=== PATIENT | male | born 1940 | race Caucasian/White ===

== ENCOUNTER → 2017-04-17 | Outpatient (CLI) | payer MEDICARE, BC ==
[2017-04-17 11:43] LABS: Basophils # (A) 0.1 k/uL (0-0.2); Basophils % (A) 1 %; CH 32.5; Eosinophils % (A) 11 %; HCT 38.7 % (39.0-53.0); HDW 2.78; HGB 12.3 gm/dL (13.0-17.5); Luc # (Auto) 0.19; Luc % (Auto) 2; Lymphocytes # (A) 1.5 k/uL (1.0-4.8); Lymphocytes % (A) 16 %; MCH 32.4 pg (25.0-35.0); MCHC 31.7 g/dL (31.0-37.0); MCV 102.3 fL (80.0-100.0); Macrocytosis Slight; Mean Platelet Volume 8.6; Monocytes # (A) 0.8 k/uL (0-1.0); Monocytes % (A) 8 %; Neutrophils # (A) 6.1 k/uL (1.3-7.7); Neutrophils % (A) 63 %; RBC 3.79 m/uL (4.30-5.90); RDW 15.6 % (11.5-15.5); WBC 9.6 k/uL (3.8-10.6); WBC (Perox) 9.81
[2017-04-17 11:52] LABS: Anion Gap 11 mmol/L; Blood Urea Nitrogen 29 mg/dL (9-20); Calcium 9.3 mg/dL (8.4-10.2); Carbon Dioxide 21 mmol/L (22-30); Chloride 111 mmol/L (98-107); Glucose 99 mg/dL (74-99); Magnesium 1.6 mg/dL (1.6-2.3); Non-African American GFR(MDRD) 54 (>60 ml/min/1.73 sqM); Potassium 4.7 mmol/L (3.5-5.1); Sodium 143 mmol/L (137-145)
== END | disposition home or self-care (01) ==
LOC: LABWHC1 11:18
PROVIDERS: ATTEND Radiology Radiation Oncology
DX: C34.12 Malignant neoplasm of upper lobe, left bronchus or lung (principal)
CPT/HCPCS: 36415; 80048; 83735; 85025

== ENCOUNTER → 2017-07-30 | Outpatient (CLI) | payer MEDICARE, BC ==
--- NOTE | 2017-07-30 15:01 | CT ---
EXAMINATION TYPE: CT ChestAbdPelvis w con DATE OF EXAM: 07/30/2017 COMPARISON: PET CT 04/21/2017 HISTORY: 76-year-old male observation for metastases, follow-up Lung cancer TECHNIQUE: Contiguous axial scanning of the chest, abdomen, and pelvis performed with IV Contrast, pa tient injected with 80 mL of Visipaque 320. Delayed images through the kidneys were obtained. Coronal /sagittal reconstructions performed. CT DLP: 1589.5 mGycm Automated exposure control for dose reduction was used. FINDINGS: Chest: Left-sided pacemaker generator with right atrial, right ventricular, and coronary sinus leads. Heart upper limits of normal in size without pericardial effusion. Coronary artery calcifications are present in remarkable for coronary disease. Borderline ectasia ascending aorta 3.7 cm. Conventional arch vessel branching anatomy. Borderline to mildly enlarged caliber to the main right and left pulmonary arteries at 2.6 cm each hobbs ggesting underlying pulmonary arterial hypertension. A borderline sized 1 cm precarinal lymph node is unchanged. Otherwise, no thoracic lymphadenopathy. There is emphysema and diffuse interstitial fibrotic changes with no consolidation or pleural effusio n. There is left perihilar and left paravertebral soft tissue thickening and a 5.6 x 2.5 cm associated p neumatocele along the posterior perihilar region at the site of patient's previous cavitary neoplasm. There is some nodular soft tissue measuring 1.3 cm along the medial margin of the pneumatocele that c ould represent abnormal, recurrent soft tissue. Small cavitary lesion anterior right midlung measures 1.4 cm versus 2.6 cm on 04/21/2017. Some patchy subpleural density posterior left lower lobe axial image 28 through 32 appears new. This can be reassessed at follow-up. ABDOMEN: No focal liver lesion or biliary ductal dilatation. Portal venous system is patent. Cholecystectomy clips. Adrenal glands, kidneys, spleen, and pancreas appear within normal limits. No dilated small bowel, free fluid, or free air. No mesenteric or retroperitoneal lymphadenopathy. Normal appendix. Mild circumferential wall thickening at the hepatic flexure likely due to nondistention. There is lef t hemicolectomy diverticulosis, greatest in the sigmoid colon. No pericolonic inflammatory change. Pelvis: Bladder urine distended. Prostate gland measures 4.6 cm wide. Small left-sided scrotal hydrocele. No abnormal fluid collection otherwise seen in the pelvis and no pelvic lymphadenopathy. Bones: Degenerative changes at the hips and SI joints and throughout the spine. There are bilateral L5 pars defects with. 2 anterolisthesis at L5-S1. Grade 1 retrolistheses at L1-L2 and L2-L3. No osseous destr uctive process. Normal variant of sternal foramina. IMPRESSION: 1. POSTERIOR LEFT PERIHILAR PNEUMATOCELE AND ASSOCIATED LEFT PERIHILAR SOFT TISSUE THICKENING AT THE SITE OF PATIENT'S TREATED NEOPLASM. HOWEVER, THERE IS A 1.3 CM SOFT TISSUE NODULE ALONG THE WALL O F THE PNEUMATOCELE, SHORT INTERVAL FOLLOW-UP RECOMMENDED TO EXCLUDE LOCAL RECURRENCE. 2. SIMILARLY, THE PATIENT'S CAVITARY NODULE ANTERIOR RIGHT MIDLUNG IS SMALLER AT 1.4 CM VERSUS 2.6 CM , PREVIOUSLY. FINDINGS SUGGEST TREATMENT EFFECT. STABILITY OR EVOLVING CHANGES SHOULD BE ASSESSED ON FOLLOW-UP EXAM. 3. COPD AND SUSPECTED UNDERLYING PULMONARY ARTERIAL HYPERTENSION. 4. MILD CIRCUMFERENTIAL WALL THICKENING AT THE HEPATIC FLEXURE LIKELY DUE TO NONDISTENTION. CORRELATE FOR ANY SYMPTOMS OF COLITIS. 5. LEFT-SIDED COLONIC DIVERTICULOSIS ESPECIALLY IN THE SIGMOID COLON. 6. ADVANCED DEGENERATIVE CHANGES LUMBAR SPINE ABOVE.
== END | disposition home or self-care (01) ==
LOC: RADCTMAIN 11:56
PROVIDERS: ATTEND Internal Medicine Hematology & Oncology
DX: C34.32 Malignant neoplasm of lower lobe, left bronchus or lung (principal); M79.89 Other specified soft tissue disorders; R91.8 Other nonspecific abnormal finding of lung field; J44.9 Chronic obstructive pulmonary disease, unspecified; J98.4 Other disorders of lung; K57.30 Diverticulosis of large intestine without perforation or abscess without bleeding; Z88.0 Allergy status to penicillin
CPT/HCPCS: 82565; 84520; 71260; 74177; 36415; Q9967

== ENCOUNTER → 2017-09-28 | Outpatient (CLI) | payer MEDICARE, BC ==
[~2017-09-28] MED LIST: SODIUM CHLORIDE 0.9% 250 ML IV ONE
[2017-09-28 15:01] VITALS: BP 168/72; PULSE 94; RESP 18
--- NOTE | 2017-09-28 16:35 | CT ---
EXAMINATION TYPE: CT ChestAbdPelvis w con DATE OF EXAM: 09/28/2017 COMPARISON: 07/30/2017 chest and in pelvis and PET/CT dated 07/07 HISTORY: Follow up lung cancer CT DLP: 1565.7 mGycm. Automated Exposure Control for Dose Reduction was Utilized. CONTRAST: CT scan of the thorax, abdomen and pelvis is performed with IV Contrast, patient injected with 80mL o f Isovue 300. FINDINGS: LUNGS: The known cavitary lesion/pneumatocele with focal medial soft tissue nodule measures up to 5.0 x 2.2 cm with a nodule measuring 0.9 cm, both decrease in size from the prior where these measured 5 .6 x 2.5 cm and 1.3 cm. Although this appears to have decreased in size the eccentric nodule still re jo concerning for recurrence. There is also decreased size and conspicuity of the right middle lobe cavitary spiculated lesion in c omparison to the prior now measuring proximally 0.7 x 0.7 cm and previously measuring 1.4 cm. Prior t o this on the exam of 04/21/2017 this measured 2.6 cm. Mild centrilobular emphysema and interstitial fibrotic changes within the lingula and left lower lobe are unchanged from the prior. Interstitial fibrotic changes in a subpleural location are less pronou nced along the periphery of the right lung. There is near resolution of the previously seen patchy ri ght medial subpleural density favored to have represented atelectasis. Focal thickening is seen poste riorly on the left lower lobe measuring 6 mm in thickness on series 4 image 37. MEDIASTINUM: There are no greater than 1 cm hilar or mediastinal lymph nodes. There is an unchanged 1 .0 cm short axis pretracheal lymph node moderate coronary artery calcifications are seen. No perica rdial effusion is seen. Left-sided cardiac device is present. LIVER/GB: Liver enhances homogeneously without discrete lesion. Gallbladder surgically absent. PANCREAS: Parenchymal calcifications are seen within the pancreas from chronic pancreatitis. No perip ancreatic fluid collection or peripancreatic fat stranding is seen to suggest acute pancreatitis. SPLEEN: No significant abnormality is seen. No splenomegaly. ADRENALS: No thickening or nodularity. KIDNEYS: No significant abnormality is seen. BOWEL: Appendix is air-filled and within normal limits. Scattered colonic diverticula are seen withou t pericolonic fat stranding. Moderate amount retained stool is seen throughout the colon most pronoun jose cruz within the cecum. GENITAL ORGANS: Prostate gland is diffusely heterogenous containing central zone calcifications. LYMPH NODES: No greater than 1cm abdominal or pelvic lymph nodes are appreciated. OSSEOUS STRUCTURES: There is redemonstration of grade 2 anterolisthesis of L5 on S1 and grade 1 retro listhesis at L1 L2/L2 L3. Degenerative changes of the femoral acetabular joints, sacroiliac joints, a nd spine are again seen. No new suspicious osseous lesion. IMPRESSION: 1. Continued decrease in size of the left-sided pneumatocele with focal nodule at the site of the pat ient's prior treated neoplasm. There is also continued decrease in size of the second left-sided cavi tary nodule and right middle lobe pulmonary nodule also indicating response to treatment. However th e mural nodule within the pneumatocele in the largest lesion still remains suspicious and close surve illance is recommended. 2. No new adenopathy within the chest, abdomen, or pelvis. No suspicious new osseous lesions or new e vidence of additional sites of visceral metastasis.
== END | disposition home or self-care (01) ==
LOC: RADCTMAIN 13:43
PROVIDERS: ATTEND Internal Medicine Hematology & Oncology
DX: C34.32 Malignant neoplasm of lower lobe, left bronchus or lung (principal); Z88.0 Allergy status to penicillin
CPT/HCPCS: 82565; 84520; 96360; 71260; 74177; Q9967

== ENCOUNTER 2017-10-17 19:55 | Inpatient (IN) | payer MEDICARE, BC ==
[2017-10-17] MEDS: SODIUM CHLORIDE 0.9% 1,000 ML IV STA (21:04)
--- NOTE | 2017-10-17 21:05 | ED ---
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 He apparently states he was sitting in his car he fell he had a cough he coughed up a large amount of blood. He has some shortness of breath associated with it. His saturation was initially 84% room air with 93 and 4 L. Upon arrival he felt improved. He denies any chest pain fevers chills nausea vomiting sweats or other symptoms. He states the blood was definitely from his lung from a nosebleed not from his GI tract. MD Complaint: shortness of breath, cough - Related Data Home Medications Medication Instructions Recorded Confirmed Allopurinol [Zyloprim] 300 mg PO DAILY 10/02/14 10/17/17 Aspirin EC [Ecotrin] 325 mg PO DAILY 10/02/14 10/17/17 Cholecalciferol [Vitamin D3] 2,000 unit PO HS 10/02/14 10/17/17 Glucosam/Cristian-Msm1/C/Dorian/Bosw 1 tab PO DAILY 10/02/14 10/17/17 [Glucosamine-Chondroitin Tablet] Magnesium Oxide [Mag-Ox] 400 mg PO QID 10/02/14 10/17/17 Metoprolol Succinate [Toprol XL] 100 mg PO QAM 10/02/14 10/17/17 Omeprazole [PriLOSEC] 20 mg PO AC-BID 10/02/14 10/17/17 Saxagliptin HCl [Onglyza] 5 mg PO DAILY 10/02/14 10/17/17 Simvastatin [Zocor] 20 mg PO HS 10/02/14 10/17/17 Vitamin B Complex 1 cap PO DAILY 10/02/14 10/17/17 hydrALAZINE HCL [Apresoline] 50 mg PO TID 10/02/14 10/17/17 Cetirizine HCl [Zyrtec] 10 mg PO DAILY 10/17/17 10/17/17 Ibuprofen [Motrin] 600 mg PO Q8HR PRN 10/17/17 10/17/17 Allergies Allergy/AdvReac Type Severity Reaction Status Date / Time Penicillins Allergy Anaphylaxis Verified 10/17/17 20:23 Review of Systems ROS Statement: Those systems with pertinent positive or pertinent negative responses have been documented in the HPI. ROS Other: All systems not noted in ROS Statement are negative. Past Medical History Past Medical History: CVA/TIA, Diabetes Mellitus, GERD/Reflux, Hyperlipidemia, Osteoarthritis (OA), Sleep Apnea/CPAP/BIPAP Additional Past Medical History / Comment(s): SEE DR RAMOS'S H&P, LIGHT STROKE 6-7 YRS AGO-NO RESIDUAL,USES C PAP,CONSTIPATION,HEMORRHOIDS,UTI'S Last Myocardial Infarction Date:: unknown History of Any Multi-Drug Resistant Organisms: None Reported Past Surgical History: AICD, Cholecystectomy, Heart Catheterization, Heart Catheterization With Stent, Hernia Repair, Orthopedic Surgery Additional Past Surgical History / Comment(s): UMBILICAL AND LT INGUINAL HERNIA REPAIRS,RT HIP ARTHROSCOPY, PACEMAKER/DEF ST SOPHIA LT CHEST Past Anesthesia/Blood Transfusion Reactions: No Reported Reaction Date of Last Stent Placement:: 09-23-2009 Type of Cardiac Device: AICD Device Placement Date:: 01-17-2010 Past Psychological History: Depression Smoking Status: Former smoker Past Alcohol Use History: Occasional Past Drug Use History: None Reported - Past Family History Mother Family Medical History: Cancer Brother(s) Family Medical History: Cancer Additional Family Medical History / Comment(s): X 4 BROTHERS General Exam - General Exam Comments Initial Comments: This is a well-developed well-nourished awake alert oriented times 3 male was dry blood noted on the patient's face and on his clothing including issues. Limitations: no limitations Respiratory exam: Present: decreased breath sounds (Course breath sounds are noted) Course Vital Signs 10/17/17 10/17/17 10/17/17 20:03 20:07 21:30 Temperature 98.3 F Pulse Rate 85 83 Respiratory 18 18 18 Rate Blood Pressure 104/61 142/70 O2 Sat by Pulse 93 L 94 L Oximetry 10/17/17 10/17/17 23:03 23:37 Temperature Pulse Rate 77 81 Respiratory 18 18 Rate Blood Pressure 140/76 169/78 O2 Sat by Pulse 96 97 Oximetry Medical Decision Making - Medical Decision Making I did discuss [employer] the patient family as well as with Dr. Kim patient will be admitted to the hospitalist Dr. Mcclure with Dr. Kim and consult. - Lab Data Result diagrams: 10/17/17 20:00 10/17/17 20:00 Lab Results 10/17/17 10/17/17 10/17/17 Range/Units 20:00 20:00 20:00 WBC 9.1 (3.8-10.6) k/uL RBC 2.57 L (4.30-5.90) m/uL Hgb 8.6 L (13.0-17.5) gm/dL Hct 27.6 L (39.0-53.0) % MCV 107.4 H (80.0-100.0) fL MCH 33.5 (25.0-35.0) pg MCHC 31.2 (31.0-37.0) g/dL RDW 19.6 H (11.5-15.5) % Plt Count 116 L (150-450) k/uL Neutrophils % 88 % Lymphocytes % 5 % Monocytes % 6 % Eosinophils % 0 % Basophils % 0 % Neutrophils # 8.0 H (1.3-7.7) k/uL Lymphocytes # 0.5 L (1.0-4.8) k/uL Monocytes # 0.6 (0-1.0) k/uL Eosinophils # 0.0 (0-0.7) k/uL Basophils # 0.0 (0-0.2) k/uL Manual Slide Review Performed Polychromasia Present Hypochromasia Slight Poikilocytosis (manual Present Anisocytosis Slight Macrocytosis Marked PT (9.0-12.0) sec INR (<1.2) APTT (22.0-30.0) sec Sodium (137-145) mmol/L Potassium (3.5-5.1) mmol/L Chloride (98-107) mmol/L Carbon Dioxide (22-30) mmol/L Anion Gap mmol/L BUN (9-20) mg/dL Creatinine (0.66-1.25) mg/dL Est GFR (CKD-EPI)AfAm (>60 ml/min/1.73 sqM) Est GFR (CKD-EPI)NonAf (>60 ml/min/1.73 sqM) Glucose (74-99) mg/dL Calcium (8.4-10.2) mg/dL Magnesium (1.6-2.3) mg/dL Total Bilirubin (0.2-1.3) mg/dL AST (17-59) U/L ALT (21-72) U/L Alkaline Phosphatase (38-126) U/L Total Creatine Kinase 28 L (55-170) U/L CK-MB (CK-2) 0.9 (0.0-2.4) ng/mL CK-MB (CK-2) Rel Index 3.2 Troponin I 0.031 (0.000-0.034) ng/mL NT-Pro-B Natriuret Pep pg/mL Total Protein (6.3-8.2) g/dL Albumin (3.5-5.0) g/dL Blood Type O Positive Blood Type Recheck No Antibody Screen NEGATIVE Spec Expiration Date 10/20/2017 - 229910/17/17 10/17/17 10/17/17 Range/Units 20:00 20:00 20:00 WBC (3.8-10.6) k/uL RBC (4.30-5.90) m/uL Hgb (13.0-17.5) gm/dL Hct (39.0-53.0) % MCV (80.0-100.0) fL MCH (25.0-35.0) pg MCHC (31.0-37.0) g/dL RDW (11.5-15.5) % Plt Count (150-450) k/uL Neutrophils % % Lymphocytes % % Monocytes % % Eosinophils % % Basophils % % Neutrophils # (1.3-7.7) k/uL Lymphocytes # (1.0-4.8) k/uL Monocytes # (0-1.0) k/uL Eosinophils # (0-0.7) k/uL Basophils # (0-0.2) k/uL Manual Slide Review Polychromasia Hypochromasia Poikilocytosis (manual Anisocytosis Macrocytosis PT 9.8 (9.0-12.0) sec INR 1.0 (<1.2) APTT 22.2 (22.0-30.0) sec Sodium 145 (137-145) mmol/L Potassium 5.0 (3.5-5.1) mmol/L Chloride 109 H (98-107) mmol/L Carbon Dioxide 25 (22-30) mmol/L Anion Gap 11 mmol/L BUN 39 H (9-20) mg/dL Creatinine 1.19 (0.66-1.25) mg/dL Est GFR (CKD-EPI)AfAm 68 (>60 ml/min/1.73 sqM) Est GFR (CKD-EPI)NonAf 59 (>60 ml/min/1.73 sqM) Glucose 101 H (74-99) mg/dL Calcium 8.7 (8.4-10.2) mg/dL Magnesium 1.3 L (1.6-2.3) mg/dL Total Bilirubin 0.2 (0.2-1.3) mg/dL AST 18 (17-59) U/L ALT 31 (21-72) U/L Alkaline Phosphatase 62 (38-126) U/L Total Creatine Kinase (55-170) U/L CK-MB (CK-2) (0.0-2.4) ng/mL CK-MB (CK-2) Rel Index Troponin I (0.000-0.034) ng/mL NT-Pro-B Natriuret Pep 1680 pg/mL Total Protein 6.0 L (6.3-8.2) g/dL Albumin 3.2 L (3.5-5.0) g/dL Blood Type Blood Type Recheck Antibody Screen Spec Expiration Date - EKG Data -: EKG Interpreted by Me EKG shows normal: sinus rhythm (Atrial sensed ventricular paced rhythm of 77PA interval 136 QRS duration 138 QT since QTC of 46/459) - Radiology Data Radiology results: report reviewed (I did review the imaging and report evidence a left upper lobe mass consistent with the patient's known lung cancer. ), image reviewed Disposition Clinical Impression: Hemoptysis, Small cell lung cancer, Anemia, Hypomagnesemia Disposition: ADMITTED IP TO THIS [facility] Condition: Stable Referrals: Stanford Hernandez DO [Primary Care Provider] - 1-2 days
[2017-10-17 21:20] LABS: Anisocytosis Slight; Basophils % (A) 0 %; Eosinophils % (A) 0 %; HCT 27.6 % (39.0-53.0); HGB 8.6 gm/dL (13.0-17.5); Hypochromasia Slight; Lymphocytes # (A) 0.5 k/uL (1.0-4.8); Lymphocytes % (A) 5 %; MCH 33.5 pg (25.0-35.0); MCHC 31.2 g/dL (31.0-37.0); MCV 107.4 fL (80.0-100.0); Macrocytosis Marked; Mean Platelet Volume 8.1; Monocytes # (A) 0.6 k/uL (0-1.0); Monocytes % (A) 6 %; Neutrophils % (A) 88 %; Platelet Count 116 k/uL (150-450); RBC 2.57 m/uL (4.30-5.90); RDW 19.6 % (11.5-15.5); WBC 9.1 k/uL (3.8-10.6)
--- NOTE | 2017-10-17 21:30 | XR ---
EXAMINATION TYPE: XR chest 2V DATE OF EXAM: 10/17/2017 COMPARISON: 01/18/2010 chest x-ray, 09/28/2017 CT chest abdomen pelvis INDICATION: Difficulty breathing coughing up blood history of lung cancer TECHNIQUE: Frontal and lateral views of the chest are obtained. FINDINGS: The heart size is enlarged. The pulmonary vasculature is normal. There is a density adjacent to the aortic arch which is an interval finding. There appears to be elev ation left diaphragm. Pacemaker overlies left chest.. IMPRESSION: 1. Density over the left upper lung field. This appears related to the patient's reported cancer.
[2017-10-17 21:31] LABS: Albumin 3.2 g/dL (3.5-5.0); Calcium 8.7 mg/dL (8.4-10.2); Magnesium 1.3 mg/dL (1.6-2.3); Total Bilirubin 0.2 mg/dL (0.2-1.3)
[2017-10-17 21:39] LABS: Poikilocytosis (M) Present; Polychromasia Present
[2017-10-17 21:40] LABS: Partial Thromboplastin Time 22.2 sec (22.0-30.0); Prothrombin Time 9.8 sec (9.0-12.0)
[2017-10-17 21:57] LABS: Creatine Kinase MB 0.9 ng/mL (0.0-2.4); Troponin I 0.031 ng/mL (0.000-0.034)
[2017-10-18] MEDS ORDERED: IPRATROPIUM-ALBUTEROL 3 ML NEB INHALATION PRN (06:34)
[2017-10-18 06:46] LABS: Anisocytosis Slight; Basophils % (A) 0 %; Eosinophils % (A) 0 %; HCT 27.4 % (39.0-53.0); HGB 8.6 gm/dL (13.0-17.5); Hypochromasia Moderate; Lymphocytes # (A) 0.4 k/uL (1.0-4.8); Lymphocytes % (A) 5 %; MCH 34.6 pg (25.0-35.0); MCHC 31.5 g/dL (31.0-37.0); MCV 109.9 fL (80.0-100.0); Macrocytosis Marked; Mean Platelet Volume 8.5; Monocytes # (A) 0.4 k/uL (0-1.0); Monocytes % (A) 5 %; Neutrophils # (A) 7.1 k/uL (1.3-7.7); Neutrophils % (A) 89 %; Platelet Count 99 k/uL (150-450); RBC 2.49 m/uL (4.30-5.90); RDW 19.8 % (11.5-15.5)
[2017-10-18] MEDS: IPRATROPIUM-ALBUTEROL 3 ML NEB IH SCH ×4 (08:41→19:16)
[2017-10-18] MEDS: SODIUM CHLORIDE 0.9% 1,000 ML IV STA (09:07)
[2017-10-18] MEDS ORDERED: LINAGLIPTIN 5 MG TABLET PO SCH (10:45)
[2017-10-18 10:58] LABS: Glucose,Whole Blood 119 mg/dL (75-99)
[2017-10-18 11:16] LABS: Anisocytosis Moderate; Basophils % (A) 0 %; Eosinophils # (A) 0.1 k/uL (0-0.7); Eosinophils % (A) 1 %; HCT 26.8 % (39.0-53.0); HGB 8.5 gm/dL (13.0-17.5); Hypochromasia Moderate; Lymphocytes # (A) 0.3 k/uL (1.0-4.8); Lymphocytes % (A) 3 %; MCH 34.6 pg (25.0-35.0); MCHC 31.7 g/dL (31.0-37.0); MCV 109.2 fL (80.0-100.0); Macrocytosis Marked; Mean Platelet Volume 7.7; Monocytes # (A) 0.5 k/uL (0-1.0); Monocytes % (A) 5 %; Neutrophils # (A) 8.4 k/uL (1.3-7.7); Neutrophils % (A) 90 %; Platelet Count 114 k/uL (150-450); RBC 2.45 m/uL (4.30-5.90); WBC 9.3 k/uL (3.8-10.6)
[2017-10-18] MEDS: ALLOPURINOL 300 MG TAB PO SCH (11:41)
[2017-10-18] MEDS: LORATADINE 10 MG TAB PO SCH (11:42)
[2017-10-18] MEDS: PANTOPRAZOLE 40 MG TABLET PO SCH ×2 (11:42→16:02)
[2017-10-18] MEDS ORDERED: ONDANSETRON 4 MG/2 ML VIAL IVP PRN (14:46)
[2017-10-18] MEDS ORDERED: ACETAMINOPHEN TAB 325 MG TAB PO PRN (14:46)
[2017-10-18] MEDS ORDERED: MAGNESIUM HYDROXIDE 2,400 MG/10 ML CUP PO PRN (14:46)
[2017-10-18] MEDS ORDERED: NALOXONE 0.4 MG/ML 1 ML VIAL IV PRN (14:46)
[2017-10-18] MEDS ORDERED: MELATONIN 3 MG TABLET PO PRN (14:46)
[2017-10-18] MEDS ORDERED: CALCIUM CARBONATE 500 MG CHEWABLE PO PRN (14:46)
[2017-10-18] MEDS ORDERED: LACTULOSE 20 GM/30 ML CUP PO PRN (14:46)
[2017-10-18] MEDS ORDERED: ALPRAZolam 0.25 MG TAB PO PRN (14:46)
[2017-10-18] MEDS ORDERED: RX INFO: IV CONTRAST WAS GIVEN 1 EACH MISC MISCELLANE PRN (15:04)
--- NOTE | 2017-10-18 15:53 | HP ---
HISTORY AND PHYSICAL DATE OF ADMISSION: 10/18/17 DATE OF SERVICE: 10/18/17 PRESENT COMPLAINT: Coughing/vomiting blood. HISTORY OF PRESENTING COMPLAINT: This is a very pleasant 77-year-old patient who follows with oncologist Dr. Gay and Radiation Oncology, Dr. Magana. Also sees Dr. Kim from Pulmonary. Chronic stable medical conditions include diabetes, GERD, hyperlipidemia, obstructive sleep apnea uses CPAP and COPD and coronary artery disease with stent. The patient diagnosed to have small-cell lung cancer, finished a course of chemo and radiation treatment a few weeks ago. I do not have further details on the same from the patient. His daughter is present. The patient has had some cough and then he is not sure if he coughed up or vomited a large amount of blood. The patient did have 1 loose stool today that was dark in color. No abdominal pain. Presented for the same. Patient's appetite is fair though the patient has lost some weight. There is no fever, no chills. No sputum production. Does feel tired and run down. REVIEW OF SYSTEMS: Constitutional: Tired. HEENT none. Respiratory: Some cough and some shortness of breath. Cardiovascular none. Gastrointestinal heartburn. Genitourinary none. Musculoskeletal: None. Dermatological, hematologic, lymphatic none. Psychiatry none. Neurological none. PAST MEDICAL HISTORY: Stroke with no residual, diabetes mellitus type 2, GERD, hyperlipidemia, osteoarthritis, sleep apnea, constipation, hemorrhoids, April 06, 2013 was diagnosed with stage II lung cancer, given chemo and radiation. PAST SURGICAL HISTORY: AICD, cholecystectomy, cardiac cath with stent, hernia repair, umbilical and left inguinal hernia repair, right hip arthroplasty, pacemaker. PSYCH HISTORY: Depression. SOCIAL HISTORY: Patient smoked for about 49 years, stopped in 2003. Lives by himself. The patient was self-employed. Used to repair tractors. FAMILY HISTORY: Four brothers had cancers. HOME MEDICATIONS: 1. Magnesium oxide 400 mg t.i.d. 2. Zocor 20 mg q.h.s. 3. Motrin 600 mg q.8h p.r.n. 4. Vitamin D3 2000 units p.o. q.h.s. 5. Vitamin B complex 1 capsule p.o. daily. 6. Zyrtec 10 mg p.o. daily. 7. Hydralazine 50 mg p.o. t.i.d. 8. Glucosamine chondroitin 1 tab p.o. daily. 9. Aspirin 325 p.o. daily. 10.Allopurinol 300 mg p.o. daily. 11.Onglyza 5 mg p.o. daily. 12.Prilosec 20 mg p.o. b.i.d. 13.Toprol-XL 100 mg p.o. daily. ALLERGIES: PENICILLIN. PHYSICAL EXAMINATION: Vital signs on presentation, temperature 98.3, pulse 85, respiration 18, blood pressure 104/61, pulse ox 93% on 2 L. GENERAL APPEARANCE: Well built, BMI 32, lying in bed, not in distress. EYES: Pupils equal. Conjunctivae normal. HEENT: External appearance of nose and ears. Oral cavity normal. NECK: JVD not raised. Mass not palpable. RESPIRATORY: Effort normal. LUNGS: Diminished breath sounds. CARDIOVASCULAR: 1st and second sounds normal. No edema. ABDOMEN: Soft, nontender. Liver and spleen not palpable. LYMPHATICS: No lymph nodes palpable in the neck or axillae. PSYCHIATRY: Alert and oriented x3. Mood and affect normal. NEUROLOGICAL: Pupils equal. Cranial nerves grossly intact. Power and sensation grossly intact. INVESTIGATIONS: White count 9.1, hemoglobin 8.6, is 8.5, platelets 116, potassium 5, BUN 39, creatinine 1.19. Chest x-ray shows density in the left upper lung field. ASSESSMENT: 1. Massive hemoptysis, less likely appears to be hematemesis in a patient who has been coughing, has had small-cell lung cancer with radiation chemo. The patient's tumor could have a eroded blood vessel. Clinically does not appear to have any acute infection, less likely but possible this could have been hematemesis, but the patient has only had 1 dark stool. 2. Small-cell lung cancer, status post treated with chemo and radiation treatment. 3. Diabetes mellitus type 2 on oral hypoglycemic. 4. Gastroesophageal reflux disease. 5. Hyperlipidemia. 6. Obstructive sleep apnea uses CPAP machine. 7. Chronic obstructive pulmonary disease in an ex-smoker. 8. Coronary artery disease with prior history of stent. PLAN: H and H is closely being followed. The patient will be switched to a clear liquid diet. I discussed with Dr. Kim to whom the patient now will follow up. The patient will need a repeat CT scan and a bronchoscopy. There is a high probability of bleeding again. Since there is a concern this could be GI too, also consulted Dr. Ontiveros from Gastroenterology. Home medications are resumed. Accu-Cheks will be followed. Care was discussed with the patient. Daughter at the bedside. We will also make a consultation to Dr. Gay from Oncology. Copy to Dr. Hernandez. KACIE / ALISONN: [id number] /
[2017-10-18] MEDS: hydrALAZINE HCL 50 MG TAB PO SCH ×2 (16:01→21:19)
[2017-10-18] MEDS: MAGNESIUM OXIDE 400 MG TAB PO SCH ×2 (16:02→21:19)
[2017-10-18] MEDS: METOPROLOL SUCCINATE (ER) 100 MG TAB.ER.24H PO SCH (16:02)
--- NOTE | 2017-10-18 16:39 | CT ---
CT CHEST FOR PULMONARY EMBOLISM. EXAMINATION TYPE: CT angio chest DATE OF EXAM: 10/18/2017 INDICATION: Shortness of breath and hemoptysis. CT DLP: 579 mGycm, Automated exposure control for dose reduction was used. CONTRAST: Patient injected with 100 mL of Isovue 370. COMPARISON: 09/28/2017r TECHNIQUE: CT of the chest is performed on a spiral scan at 2 mm thick sections. Study is performed with intravenous contrast timed for evaluation for pulmonary embolism. This will limit additional po rtions of the evaluation. 3-D MIP images reconstructed by the technologist are reviewed on the compu ter in the coronal and sagittal planes. FINDINGS: No persistent filling defects are evident to suggest an acute pulmonary embolism. There is an enlarged lymph node in the pretracheal space measuring 1.6 cm. Additional enlarged lympha denopathy is in the aortopulmonic window measuring 1.1 cm. Left hilar adenopathy is more difficult to exclude. Lymph nodes have enlarged from the comparison. The ascending aorta diameter at the level o f the main pulmonary artery is 3.9 cm. The main pulmonary artery diameter at the bifurcation is 3.3 cm. Multiple densities in particular nodular thickening is present at the left lung base. Findings can be compatible with metastatic disease or pulmonary fibrosis. There is a lung mass in the medial left kyle ng adjacent to the aorta. This has cavitation. At the level of the aortic arch measures approximately 5.9 x 4.7 cm. The air cavity is changed appearance from the comparison currently measuring 3.4 x 4.3 cm, previous measurements obtained were 2.2 x [address] section through the upper abdomen are unremarkable. IMPRESSIONS: 1. No acute pulmonary embolism. 2. Cavitary lesion posterior medial mid left lung. Cavity size has changed appearance from comparison . 3. Lymphangitic metastasis favored over pulmonary fibrosis left lung base.
--- NOTE | 2017-10-18 16:40 | P.CNPUL ---
History of Present Illness Consult date: 10/18/17 Chief complaint: massive hemoptysis History of present illness: 77-year-old male patient with known history of small cell lung cancer who was treated with a concurrent chemoradiation therapy, presents emergency department yesterday because of an acute onset massive hemoptysis. The patient reports cough and approximately 2 50 mL of bright red blood with occasional blood clots. He was very much concerned and he presented himself to the burst department. He denies having any significant shortness of breath. No chest pain or pleurisy. No hematemesis. No melanotic stools. No epistaxis. No fever. No chills. His hemoglobin has stayed at 8.5 and stable. Correlation profile is also within normal limits. Note that the patient has history of COPD, coronary artery disease, congestion heart failure, he has an AICD in place in addition to diabetes and hyperlipidemia. Furthermore, the patient presented back in March 2017 with a cavitating mass in the left upper lobe and he was having episodes of hemoptysis. The CAT scan was done and [facility] and showed a 6 cm cavitating mass in the left upper lobe medially and posteriorly located. There was another 1.7 cm right paratracheal lymph node and others particularly the lesion in the right upper lobe. At that point, a bronchoscopy was done and we confirmed the diagnosis of a small cell lung cancer. The patient has received systemic chemoradiation therapy since then and the most recent CAT scan of the chest abdomen pelvis that was done on 09/28/2017 showed left-sided pneumatocele with focal nodular and this has significantly increased in size compared to the previous CAT scan findings. There was also decrease in the size of a nodule on the right indicating positive response. No evidence of any mediastinal lymphadenopathy. No evidence of any osseous metastases. No evidence of any visceral metastasis on the CAT scan of the abdomen and pelvis. Note that the bronchoscopy that was done on 04/24/2017 showed endobronchial tumor obstructing the left lower lobe bronchitis and there was evidence of extrinsic compression along with endobronchial involvement. There was significant compromise of the left lower lobe bronchus and there was reduction in size of the lower lumbar a 80-90%. Review of Systems Constitutional Constitutional: no fever, no night sweats, no significant weight gain, no significant weight loss, no exercise intolerance Eyes Eyes: no dry eyes, no vision change, no irritation ENMT Ears: no difficulty hearing, ear pain (left sided) Nose: no frequent nosebleeds, nose problems, sinus problems Mouth/Throat: no sore throat, no bleeding gums, no dry mouth, no mouth ulcers, no teeth problems, snoring Cardiovascular Cardiovascular: no chest pain, no arm pain on exertion, no shortness of breath when walking, no palpitations, no known heart murmur, shortness of breath when lying down Respiratory Respiratory: no cough, no wheezing, shortness of breath, sleep apnea, and the patient has had massive hemoptysis as mentioned above in history of present illness Gastrointestinal Gastrointestinal: no abdominal pain, no nausea, no vomiting, no constipation, normal appetite, no diarrhea, not vomiting blood, no dyspepsia, no GERD Genitourinary Genitourinary: no incontinence, no difficulty urinating, no hematuria, no increased frequency Musculoskeletal Musculoskeletal: no muscle aches, no muscle weakness, no arthralgias/joint pain , no back pain, no swelling in the extremities Integumentary Skin: no abnormal mole, no jaundice, no rashes, no laceration Neurologic Neurologic: no loss of consciousness, no weakness, no numbness, no seizures, no dizziness, no migraines, no headaches, no tremor Psychiatric Psych: no depression, no sleep disturbances, feeling safe in a relationship, no alcohol abuse, no anxiety, no hallucinations, no suicidal thoughts Endocrine Endocrine: no fatigue Hematologic/Lymphatic Hematologic/Lymphatic no swollen glands, no bruising, no excessive bleeding Allergic/Immunologic Allergy/Immunologic: no runny nose, no sinus pressure, no itching, no hives, no frequent sneezing Past Medical History Past Medical History: CVA/TIA, Diabetes Mellitus, GERD/Reflux, Hyperlipidemia, Osteoarthritis (OA), Sleep Apnea/CPAP/BIPAP Additional Past Medical History / Comment(s): COPD, small cell lung cancer, coronary artery disease, hypertension, hyperlipidemia, obstructive sleep apnea nontolerant to CPAP therapy, diabetes mellitus, previous history of CVA without any residual deficits, hemorrhoids, constipation, chronic ALLERGIC rhinitis, obesity, congestion heart failure Last Myocardial Infarction Date:: unknown History of Any Multi-Drug Resistant Organisms: None Reported Past Surgical History: AICD, Cholecystectomy, Heart Catheterization, Heart Catheterization With Stent, Hernia Repair, Orthopedic Surgery Additional Past Surgical History / Comment(s): Bronchoscopy, on medical and left inguinal hernia repair, right hip arthroscopy, pacemaker/AICD placement, cardiac catheter patient with insertion of coronary stent, cholecystectomy Past Anesthesia/Blood Transfusion Reactions: No Reported Reaction Date of Last Stent Placement:: 09-23-2009 Type of Cardiac Device: AICD Device Placement Date:: 01-17-2010 Past Psychological History: Depression Additional Psychological History / Comment(s): health reasons Smoking Status: Former smoker Past Alcohol Use History: Occasional Additional Past Alcohol Use History / Comment(s): QUIT SMOKING APPROX 2003. SMOKED SINCE AGE 19 Past Drug Use History: None Reported - Past Family History Mother Family Medical History: Cancer Brother(s) Family Medical History: Cancer Additional Family Medical History / Comment(s): X 4 BROTHERS Medications and Allergies Home Medications Medication Instructions Recorded Confirmed Type Allopurinol [Zyloprim] 300 mg PO DAILY 10/02/14 10/17/17 History Aspirin EC [Ecotrin] 325 mg PO DAILY 10/02/14 10/17/17 History Cholecalciferol [Vitamin D3] 2,000 unit PO HS 10/02/14 10/17/17 History Glucosam/Cristian-Msm1/C/Dorian/Bosw 1 tab PO DAILY 10/02/14 10/17/17 History [Glucosamine-Chondroitin Tablet] Magnesium Oxide [Mag-Ox] 400 mg PO TID 10/02/14 10/18/17 History Metoprolol Succinate [Toprol XL] 100 mg PO QAM 10/02/14 10/17/17 History Omeprazole [PriLOSEC] 20 mg PO AC-BID 10/02/14 10/17/17 History Saxagliptin HCl [Onglyza] 5 mg PO DAILY 10/02/14 10/17/17 History Simvastatin [Zocor] 20 mg PO HS 10/02/14 10/17/17 History Vitamin B Complex 1 cap PO DAILY 10/02/14 10/17/17 History hydrALAZINE HCL [Apresoline] 50 mg PO TID 10/02/14 10/17/17 History Cetirizine HCl [Zyrtec] 10 mg PO DAILY 10/17/17 10/17/17 History Ibuprofen [Motrin] 600 mg PO Q8HR PRN 10/17/17 10/17/17 History Allergies Allergy/AdvReac Type Severity Reaction Status Date / Time Penicillins Allergy Anaphylaxis Verified 10/17/17 20:23 Physical Exam Vitals: Vital Signs Temp Pulse Pulse Resp BP BP Pulse Ox 10/18/17 16:00 118 H 109/60 10/18/17 14:46 94 L 10/18/17 14:07 110 H 94 L 10/18/17 13:45 18 10/18/17 13:17 98.0 F 126 H 18 115/56 93 L 10/18/17 11:16 92 16 10/18/17 11:08 90 16 93 L 10/18/17 08:41 80 10/18/17 05:40 98.0 F 77 16 116/54 94 L 10/17/17 23:37 81 18 169/78 97 10/17/17 23:03 77 18 140/76 96 10/17/17 21:30 83 18 142/70 94 L 10/17/17 20:07 18 10/17/17 20:03 98.3 F 85 18 104/61 93 L Intake and Output 10/18/17 10/18/17 10/18/17 06:59 14:59 22:59 Other: Voiding Method Toilet # Voids 4 General Appearance no diaphoresis, no respiratory distress, speech not interrupted by breaths, no dyspnea, no pallor, not cachectic, well nourished, appears well, morbid obesity HEENT no pursed lip breathing, no jugular venous distention, no mucous membrane cyanosis, no perioral cyanosis, mallampati classification: class 1, Mallampati Classification: Class 4 Chest no barrel chest, no retractions, no sternocleidomastoid muscle contractions, no supraclavicular retractions, no intercostal retractions, no prolonged expiratory wheezing, no decreased air movement, no rhonchi, no hyperinflation, decreased air movement Heart no right ventricular heave, no distant heart sounds, no s3 gallop GI bowel sounds: hyperactive (borborygmi), bowel sounds: diminished or absent Extremities no cyanosis, no clubbing, no edema Neurologic no decreased mental status, no somnolence, no confusion Skin General Appearance normal, (normal) normal except as noted Results - Laboratory Findings CBC and BMP: 10/18/17 10:48 10/17/17 20:00 PT/INR, D-dimer PT 9.8 sec (9.0-12.0) 10/17/17 20:00 INR 1.0 (<1.2) 10/17/17 20:00 Abnormal lab findings: Abnormal Labs 10/17/17 10/17/17 10/17/17 20:00 20:00 20:00 RBC 2.57 L Hgb 8.6 L Hct 27.6 L MCV 107.4 H RDW 19.6 H Plt Count 116 L Neutrophils # 8.0 H Lymphocytes # 0.5 L Chloride 109 H BUN 39 H Glucose 101 H POC Glucose (mg/dL) Magnesium 1.3 L Total Creatine Kinase 28 L Total Protein 6.0 L Albumin 3.2 L 10/18/17 10/18/17 10/18/17 04:00 10:48 10:56 RBC 2.49 L 2.45 L Hgb 8.6 L 8.5 L Hct 27.4 L 26.8 L MCV 109.9 H 109.2 H RDW 19.8 H 20.0 H Plt Count 99 L 114 L Neutrophils # 8.4 H Lymphocytes # 0.4 L 0.3 L Chloride BUN Glucose POC Glucose (mg/dL) 119 H Magnesium Total Creatine Kinase Total Protein Albumin - Diagnostic Findings Chest x-ray: image reviewed Assessment and Plan Plan: assessment 1 massive hemoptysis, source most likely being the left lower lobe where there was endobronchial tumor extending to the left lower lobe bronchus causing significant airway compromise. Nevertheless, the patient was treated with a combination of chemoradiation therapy in the most recent CAT scan of the chest from 09/28/2017 showed improvement in the size of the left lower lobe mass and there is an existing pneumatocele for now with some mural nodule within the pneumatocele that looks suspicious. Other possibilities could includ infection within the pneumatocele, or airway complications related to previous radiation therapy. Hematemesis is felt to be less likely. 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 Most recent CAT scan of the chest from 09/29/2079 was noted showing decrease in size of the left side lung lesion within the pneumatocele existing and a posterior segment of the left lower lobe and decrease in the size of the right midlung pulmonary nodule. 3 obstructive sleep apnea maintained on CPAP at a pressure of 10 cm of water 4 obesity 5 coronary artery disease 6 congestion heart failure 7 history ofAICD placement 8 diabetes mellitus 9 hyperlipidemia plan Obtain a CAT scan of the chest to narrow down the source of bleed. Will need also bronchoscopy to identify source of bleeding, assess the risk for rebleeding in the future, and see if there is any residual tumor within the left lower lobe bronchus. We'll also looking for any complications related to radiation therapy itself. The patient will be kept nothing by mouth after midnight for a airway inspection tomorrow. His coagulation profile is within normal limits.
[2017-10-18 16:45] LABS: Anisocytosis Slight; Basophils % (A) 0 %; Eosinophils # (A) 0.1 k/uL (0-0.7); Eosinophils % (A) 1 %; HCT 25.4 % (39.0-53.0); HGB 8.4 gm/dL (13.0-17.5); Hypochromasia Slight; Lymphocytes # (A) 0.4 k/uL (1.0-4.8); Lymphocytes % (A) 4 %; MCH 34.7 pg (25.0-35.0); MCV 105.1 fL (80.0-100.0); Macrocytosis Marked; Mean Platelet Volume 8.2; Monocytes # (A) 0.6 k/uL (0-1.0); Monocytes % (A) 6 %; Neutrophils # (A) 8.4 k/uL (1.3-7.7); Neutrophils % (A) 88 %; RBC 2.42 m/uL (4.30-5.90); RDW 19.8 % (11.5-15.5); WBC 9.6 k/uL (3.8-10.6)
[2017-10-18 16:55] LABS: Glucose,Whole Blood 124 mg/dL (75-99)
[2017-10-18 16:58] LABS: Platelet Count 97 k/uL (150-450)
[2017-10-18] MEDS: INSULIN ASPART 100 UNIT/ML 1 ML 10 ML VIAL SQ SCH (17:19)
[2017-10-18 20:13] LABS: Glucose,Whole Blood 117 mg/dL (75-99)
[2017-10-18] MEDS ORDERED: ATORVASTATIN 20 MG TAB PO SCH (21:00)
[2017-10-18] MEDS: ATORVASTATIN 10 MG TAB PO SCH (21:19)
[2017-10-18] MEDS: CHOLECALCIFEROL 1,000 UNIT TAB PO SCH (21:19)
[2017-10-18 22:14] LABS: Anisocytosis Slight; Basophils % (A) 0 %; Eosinophils # (A) 0.1 k/uL (0-0.7); Eosinophils % (A) 1 %; HCT 26.1 % (39.0-53.0); HGB 8.3 gm/dL (13.0-17.5); Hypochromasia Slight; Lymphocytes # (A) 0.5 k/uL (1.0-4.8); Lymphocytes % (A) 5 %; MCHC 31.8 g/dL (31.0-37.0); MCV 107.1 fL (80.0-100.0); Macrocytosis Marked; Mean Platelet Volume 7.4; Monocytes # (A) 0.4 k/uL (0-1.0); Monocytes % (A) 5 %; Neutrophils # (A) 7.8 k/uL (1.3-7.7); Neutrophils % (A) 88 %; Platelet Count 105 k/uL (150-450); RBC 2.44 m/uL (4.30-5.90); RDW 19.9 % (11.5-15.5); WBC 8.8 k/uL (3.8-10.6)
[2017-10-19] MEDS: IPRATROPIUM-ALBUTEROL 3 ML NEB IH SCH ×5 (00:10→19:56)
[2017-10-19 04:22] LABS: Anisocytosis Slight; Basophils % (A) 0 %; Eosinophils # (A) 0.1 k/uL (0-0.7); Eosinophils % (A) 1 %; HCT 25.5 % (39.0-53.0); Hypochromasia Moderate; Lymphocytes # (A) 0.5 k/uL (1.0-4.8); Lymphocytes % (A) 6 %; MCH 34.2 pg (25.0-35.0); MCHC 31.4 g/dL (31.0-37.0); MCV 109.1 fL (80.0-100.0); Macrocytosis Marked; Mean Platelet Volume 7.9; Monocytes # (A) 0.5 k/uL (0-1.0); Monocytes % (A) 6 %; Neutrophils # (A) 7.6 k/uL (1.3-7.7); Neutrophils % (A) 87 %; RBC 2.33 m/uL (4.30-5.90); RDW 19.7 % (11.5-15.5); WBC 8.7 k/uL (3.8-10.6)
[2017-10-19 06:31] LABS: Poikilocytosis (M) Present; Polychromasia Present
[2017-10-19 06:32] LABS: Platelet Count 96 k/uL (150-450)
[2017-10-19 06:57] LABS: Glucose,Whole Blood 115 mg/dL (75-99)
[2017-10-19] MEDS ORDERED: PANTOPRAZOLE 40 MG TABLET PO SCH (07:30)
[2017-10-19] MEDS: INSULIN ASPART 100 UNIT/ML 1 ML 10 ML VIAL SQ SCH ×3 (08:05→17:47)
--- NOTE | 2017-10-19 08:43 | P.CONS ---
History of Present Illness - Reason for Consult Consult date: 10/19/17 Possible GI bleed Requesting physician: Forest Mcclure - History of Present Illness 77-year-old male history of small cell lung carcinoma status post chemoradiation , COPD, GERD, CAD, CHF, AICD, diabetes and hyperlipidemia. Admitted with gross hemoptysis clots coughing questionable hematemesis; patient is unsure if he vomited blood. No reports of gross hematochezia or melena since admission. No chest pain or fever. CT chest negative for PE. Cavitary lesion posterior medial mid left lung change in appearance from previous comparison. 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 Hemoglobin has remained stable since admission 8.0-8.6. Platelet 96. INR 1.0. BUN 39. Creatinine 1.1. He is nothing by mouth scheduled for bronchoscopy with BAL today. No history of GI bleed no history of peptic ulcer disease. A few EGDs in the past nothing recent. Last colonoscopy about 3 years ago possible 2 polyps removed. Review of Systems Constitutional: Denies fever, chills, sweats, weight gain, or loss. HEENT: Negative for migraines, blurred vision or loss, earaches, drainage, tinnitus, oral mucosal lesions, dysphagia, or odynophagia. Cardiac: Negative for chest pain, arrhythmias, or palpitation. Respiratory: Negative for shortness of breath, hemoptysis, cough, or sputum production. Gastrointestinal: See HPI for pertinent findings. Genitourinary: Negative for hematuria, urgency, frequency, polyuria, dysuria, or penile discharge. Musculoskeletal: Negative for muscle aches, swelling, arthritis, and arthralgias. Neurologic: Negative for stroke or TIA. Endocrine: Negative for thyroid problems. Skin: Negative for rash or itching. Psychiatric: Negative history for depression and anxiety Past Medical History Past Medical History: CVA/TIA, Diabetes Mellitus, GERD/Reflux, Hyperlipidemia, Osteoarthritis (OA), Sleep Apnea/CPAP/BIPAP Additional Past Medical History / Comment(s): COPD, small cell lung cancer, coronary artery disease, hypertension, hyperlipidemia, obstructive sleep apnea nontolerant to CPAP therapy, diabetes mellitus, previous history of CVA without any residual deficits, hemorrhoids, constipation, chronic ALLERGIC rhinitis, obesity, congestion heart failure Last Myocardial Infarction Date:: unknown History of Any Multi-Drug Resistant Organisms: None Reported Past Surgical History: AICD, Cholecystectomy, Heart Catheterization, Heart Catheterization With Stent, Hernia Repair, Orthopedic Surgery Additional Past Surgical History / Comment(s): Bronchoscopy, on medical and left inguinal hernia repair, right hip arthroscopy, pacemaker/AICD placement, cardiac catheter patient with insertion of coronary stent, cholecystectomy Past Anesthesia/Blood Transfusion Reactions: No Reported Reaction Date of Last Stent Placement:: 09-23-2009 Type of Cardiac Device: AICD Device Placement Date:: 01-17-2010 Past Psychological History: Depression Additional Psychological History / Comment(s): health reasons Smoking Status: Former smoker Past Alcohol Use History: Occasional Additional Past Alcohol Use History / Comment(s): QUIT SMOKING APPROX 2003. SMOKED SINCE AGE 19 Past Drug Use History: None Reported - Past Family History Mother Family Medical History: Cancer Brother(s) Family Medical History: Cancer Additional Family Medical History / Comment(s): X 4 BROTHERS Medications and Allergies Home Medications Medication Instructions Recorded Confirmed Type Allopurinol [Zyloprim] 300 mg PO DAILY 10/02/14 10/17/17 History Aspirin EC [Ecotrin] 325 mg PO DAILY 10/02/14 10/17/17 History Cholecalciferol [Vitamin D3] 2,000 unit PO HS 10/02/14 10/17/17 History Glucosam/Cristian-Msm1/C/Dorian/Bosw 1 tab PO DAILY 10/02/14 10/17/17 History [Glucosamine-Chondroitin Tablet] Magnesium Oxide [Mag-Ox] 400 mg PO TID 10/02/14 10/18/17 History Metoprolol Succinate [Toprol XL] 100 mg PO QAM 10/02/14 10/17/17 History Omeprazole [PriLOSEC] 20 mg PO AC-BID 10/02/14 10/17/17 History Saxagliptin HCl [Onglyza] 5 mg PO DAILY 10/02/14 10/17/17 History Simvastatin [Zocor] 20 mg PO HS 10/02/14 10/17/17 History Vitamin B Complex 1 cap PO DAILY 10/02/14 10/17/17 History hydrALAZINE HCL [Apresoline] 50 mg PO TID 10/02/14 10/17/17 History Cetirizine HCl [Zyrtec] 10 mg PO DAILY 10/17/17 10/17/17 History Ibuprofen [Motrin] 600 mg PO Q8HR PRN 10/17/17 10/17/17 History Allergies Allergy/AdvReac Type Severity Reaction Status Date / Time Penicillins Allergy Anaphylaxis Verified 10/17/17 20:23 Physical Exam Vitals: Vital Signs Temp Pulse Pulse Resp BP Pulse Ox 10/19/17 05:00 99 F 87 17 113/55 95 10/19/17 00:10 17 10/18/17 21:30 98.8 F 92 17 122/62 97 10/18/17 19:34 90 10/18/17 19:16 90 10/18/17 16:00 118 H 109/60 10/18/17 14:46 94 L 10/18/17 14:07 110 H 94 L 10/18/17 13:45 18 10/18/17 13:17 98.0 F 126 H 18 115/56 93 L 10/18/17 11:16 92 16 10/18/17 11:08 90 16 93 L 10/18/17 08:41 80 Intake and Output 10/18/17 10/19/17 10/19/17 22:59 06:59 14:59 Intake Total 360 Balance 360 Intake: Oral 360 Other: Voiding Method Toilet # Voids 1 2 Weight 92.533 kg General appearance: The patient is alert, oriented, in no acute distress. HET: Head is normocephalic and atraumatic. Pupils are equal and reactive. Oropharynx is clear without lesions. Neck: Supple without lymphadenopathy. Trachea midline. Heart: S1 S2. Regular rate and rhythm. Lungs: No crackles or wheezes are heard. Abdomen: Soft, mild tenderness around the umbilicus, nondistended with bowel sounds. No peritoneal signs. No palpable organomegaly or masses. Extremities: Normal skin color and turgor. No cyanosis, rash, ulceration, clubbing, or edema. Radial and pedal pulses are 2/4 bilaterally. Neurological: No focal deficits. Strength and sensation are grossly intact. Results CBC & Chem 7: 10/19/17 03:51 10/17/17 20:00 Labs: Abnormal Lab Results - Last 24 Hours (Table) 10/18/17 10/18/17 10/18/17 Range/Units 10:48 10:56 15:58 RBC 2.45 L 2.42 L (4.30-5.90) m/uL Hgb 8.5 L 8.4 L (13.0-17.5) gm/dL Hct 26.8 L 25.4 L (39.0-53.0) % MCV 109.2 H 105.1 H (80.0-100.0) fL RDW 20.0 H 19.8 H (11.5-15.5) % Plt Count 114 L 97 L (150-450) k/uL Neutrophils # 8.4 H 8.4 H (1.3-7.7) k/uL Lymphocytes # 0.3 L 0.4 L (1.0-4.8) k/uL POC Glucose (mg/dL) 119 H (75-99) mg/dL 10/18/17 10/18/17 10/18/17 Range/Units 16:53 20:10 21:50 RBC 2.44 L (4.30-5.90) m/uL Hgb 8.3 L (13.0-17.5) gm/dL Hct 26.1 L (39.0-53.0) % MCV 107.1 H (80.0-100.0) fL RDW 19.9 H (11.5-15.5) % Plt Count 105 L (150-450) k/uL Neutrophils # 7.8 H (1.3-7.7) k/uL Lymphocytes # 0.5 L (1.0-4.8) k/uL POC Glucose (mg/dL) 124 H 117 H (75-99) mg/dL 10/19/17 10/19/17 Range/Units 03:51 06:56 RBC 2.33 L (4.30-5.90) m/uL Hgb 8.0 L (13.0-17.5) gm/dL Hct 25.5 L (39.0-53.0) % MCV 109.1 H (80.0-100.0) fL RDW 19.7 H (11.5-15.5) % Plt Count 96 L (150-450) k/uL Neutrophils # (1.3-7.7) k/uL Lymphocytes # 0.5 L (1.0-4.8) k/uL POC Glucose (mg/dL) 115 H (75-99) mg/dL CT scan - chest: report reviewed (Dr. Adames) Assessment and Plan (1) Hemoptysis Narrative/Plan: 77-year-old male with a history of lung cancer admitted with suspected gross hemoptysis with clots without hematochezia or melena. Current Visit: Yes Status: Acute Code(s): R04.2 - HEMOPTYSIS SNOMED Code(s ): 85891783 (2) Anemia Narrative/Plan: Component of acute blood loss Current Visit: Yes Status: Acute Code(s): D64.9 - ANEMIA, UNSPECIFIED SNOMED Code(s): 301680963 (3) Small cell lung cancer Current Visit: Yes Status: Acute Code(s): C34.90 - MALIGNANT NEOPLASM OF UNSP PART OF UNSP BRONCHUS OR LUNG SNOMED Code(s): 691713139 Plan: 1. Patient's clinical presentation seems to be more suggestive of acute hemoptysis with underlying lung cancer he is scheduled for bronchoscopy today. Continue to monitor for any overt signs of GI bleeding such as gross hematemesis melena or hematochezia. For now continue supportive measures CBC monitoring. EGD contingent on clinical course and findings of bronchoscopy. We 'll follow with you. Thank you for this kind referral and the opportunity to participate in the care of your patient. This consultation was discussed with Dr. Adames. The impression and plan of care have been directed as dictated.
[2017-10-19] MEDS: MAGNESIUM OXIDE 400 MG TAB PO SCH ×3 (09:44→21:11)
[2017-10-19] MEDS: PANTOPRAZOLE 40 MG TABLET PO SCH ×2 (09:44→17:48)
[2017-10-19] MEDS: hydrALAZINE HCL 50 MG TAB PO SCH ×3 (09:44→21:10)
[2017-10-19] MEDS: METOPROLOL SUCCINATE (ER) 100 MG TAB.ER.24H PO SCH (10:11)
[2017-10-19 11:36] LABS: Glucose,Whole Blood 129 mg/dL (75-99)
[2017-10-19] MEDS ORDERED: LIDOCAINE 1% INJ 10MG/ML (20 ML MDV) ONE (12:00)
[2017-10-19] MEDS ORDERED: fentaNYL (PF) 50 MCG/ML 2 ML AMP ONE (12:00)
[2017-10-19] MEDS ORDERED: PROPOFOL 10 MG/ML 20 ML VIAL IV ONE (12:00)
[2017-10-19] MEDS ORDERED: LACTATED RINGERS 1,000 ML IV ONE (12:01)
[2017-10-19] MEDS ORDERED: LIDOCAINE 2% INJ 20 MG/ML INTRATRACH ONE (12:14)
--- NOTE | 2017-10-19 12:37 | P.PN ---
Subjective Progress Note Date: 10/19/17 On today's evaluation, the patient is not having any hemoptysis. He was free of any cough and blood for the past 12 hours. He is currently nothing by mouth in preparation for bronchoscopy. CAT scan of the chest was also done yesterday and it showed multiple densities in the left lung, nodular, may potentially suggests possible metastatic disease versus fibrosis. There is a lung mass in the medial left lung adjacent to the aorta with cavitation. At the level of the aortic arch, this was measuring 5.5 x 4.7 cm in size. There are cavity is change in appearance compared to the previous CAT scan that was done 3 weeks ago and is currently measuring 3.4 x 4.3 cm in size compared to 2.2 x 5.0 cm in size. There is also evidence of an enlarged lymph node in the pretracheal area additional large lymphadenopathy in the AP window measuring 1.1 cm and left hilar adenopathy is also suspected. Was no evidence of any pulmonary embolism. Hemodynamically stable. He did report one bout of black stools today. Objective - Vital Signs Vital signs: Vital Signs Temp 99 F 10/19/17 05:00 Pulse 78 10/19/17 11:35 Resp 16 10/19/17 11:35 BP 110/57 10/19/17 09:48 Pulse Ox 93 L 10/19/17 11:26 Intake & Output 10/18/17 10/19/17 10/19/17 18:59 06:59 18:59 Intake Total 360 Balance 360 Weight 92.533 kg Intake: Oral 360 Other: Voiding Method Toilet Toilet Toilet # Voids 4 2 2 # Bowel Movements 1 - Exam General Appearance no diaphoresis, no respiratory distress, speech not interrupted by breaths, no dyspnea, no pallor, not cachectic, well nourished, appears well, morbid obesity HEENT no pursed lip breathing, no jugular venous distention, no mucous membrane cyanosis, no perioral cyanosis, mallampati classification: class 1, Mallampati Classification: Class 4 Chest no barrel chest, no retractions, no sternocleidomastoid muscle contractions, no supraclavicular retractions, no intercostal retractions, no prolonged expiratory wheezing, no decreased air movement, no rhonchi, no hyperinflation, decreased air movement Heart no right ventricular heave, no distant heart sounds, no s3 gallop GI bowel sounds: hyperactive (borborygmi), bowel sounds: diminished or absent Extremities no cyanosis, no clubbing, no edema Neurologic no decreased mental status, no somnolence, no confusion Skin General Appearance normal, (normal) normal except as noted - Labs CBC & Chem 7: 10/19/17 03:51 10/17/17 20:00 Labs: Abnormal Lab Results - Last 24 Hours (Table) 10/18/17 10/18/17 10/18/17 Range/Units 15:58 16:53 20:10 RBC 2.42 L (4.30-5.90) m/uL Hgb 8.4 L (13.0-17.5) gm/dL Hct 25.4 L (39.0-53.0) % MCV 105.1 H (80.0-100.0) fL RDW 19.8 H (11.5-15.5) % Plt Count 97 L (150-450) k/uL Neutrophils # 8.4 H (1.3-7.7) k/uL Lymphocytes # 0.4 L (1.0-4.8) k/uL POC Glucose (mg/dL) 124 H 117 H (75-99) mg/dL 10/18/17 10/19/17 10/19/17 Range/Units 21:50 03:51 06:56 RBC 2.44 L 2.33 L (4.30-5.90) m/uL Hgb 8.3 L 8.0 L (13.0-17.5) gm/dL Hct 26.1 L 25.5 L (39.0-53.0) % MCV 107.1 H 109.1 H (80.0-100.0) fL RDW 19.9 H 19.7 H (11.5-15.5) % Plt Count 105 L 96 L (150-450) k/uL Neutrophils # 7.8 H (1.3-7.7) k/uL Lymphocytes # 0.5 L 0.5 L (1.0-4.8) k/uL POC Glucose (mg/dL) 115 H (75-99) mg/dL 10/19/17 Range/Units 11:34 RBC (4.30-5.90) m/uL Hgb (13.0-17.5) gm/dL Hct (39.0-53.0) % MCV (80.0-100.0) fL RDW (11.5-15.5) % Plt Count (150-450) k/uL Neutrophils # (1.3-7.7) k/uL Lymphocytes # (1.0-4.8) k/uL POC Glucose (mg/dL) 129 H (75-99) mg/dL Assessment and Plan Plan: assessment 1 massive hemoptysis, source most likely being the left lower lobe where there was endobronchial tumor extending to the left lower lobe bronchus causing significant airway compromise. Nevertheless, the patient was treated with a combination of chemoradiation therapy in the most recent CAT scan of the chest from 09/28/2017 showed improvement in the size of the left lower lobe mass and there is an existing pneumatocele for now with some mural nodule within the pneumatocele that looks suspicious. Other possibilities could includ infection within the pneumatocele, or airway complications related to previous radiation therapy. Hematemesis is felt to be less likely. 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 Most recent CAT scan of the chest from 09/29/2079 was noted showing decrease in size of the left side lung lesion within the pneumatocele existing and a posterior segment of the left lower lobe and decrease in the size of the right midlung pulmonary nodule. 3 obstructive sleep apnea maintained on CPAP at a pressure of 10 cm of water 4 obesity 5 coronary artery disease 6 congestion heart failure 7 history of AICD placement 8 diabetes mellitus 9 hyperlipidemia plan The CAT scan of the chest was noted. There is no change in the characteristics of the cavitating lesion in the left lower lobe which looked a bit different in size and characteristics and shape. There is also some noted at the left lower lobe along with some limited lymphadenopathy. The patient is currently not having any acute bleeding. The plan is to proceed with a bronchoscopy to assess for the cause of the bleed and the source.
--- NOTE | 2017-10-19 12:45 | P.PCN ---
Date of Procedure: 10/19/17 Preoperative Diagnosis: Lung cancer, hemoptysis Postoperative Diagnosis: Origin of hemoptysis his the left lung. No evidence of acute bleeding or active bleeding at this point in time. The source is suspected to be mucosal/ endobronchial growth/irregularity at the level of the distal left mainstem bronchus at the origin of the left lower lobe bronchus. Biopsies were obtained. Procedure(s) Performed: Lexapro bronchoscopy, endobronchial biopsy Anesthesia: MAC Surgeon: Chana Kim Estimated Blood Loss (ml): 5 Pathology: other Condition: stable Disposition: floor Operative Findings: This procedure was done under conscious sedation in the bronchoscopy suite. Anesthetic agents was administered by anesthesia the bedside. After achieving adequate sedation, the flexible bronchoscope was advanced into the right nostril and was passed through the posterior oropharynx and the legs. There was evidence of dynamic obstruction of the upper airway typical of an underlying obstructive sleep apnea. Epiglottis was identified. Vallecula, arytenoids and vocal cords were all inspected. There was no evidence of any acute or active bleeding or any blood clots or retained bloody secretions in the upper airways. A total of 2 mL of 1% lidocaine was applied to the vocal cords and following that the bronchoscope was advanced into the upper trachea. Trachea was clear and within normal limits. There was some limited amount of bloody secretions at the distal trachea more so at the origin of the left mainstem bronchus which make me think that the origin of hemoptysis with the left lung. The right mainstem bronchus was clear and so were the right lung structures including the right upper lobe right middle lobe and right lower lobe. The bronchoscope was then moved to the left main stem bronchus. There was more bloody secretions retained within the left main stem bronchus without any blood clots. Left upper lobe bronchus was patent within normal limits. The shannan the to the left upper and left lower lobe bronchus was swollen and somewhat irregular and the left lower lobe bronchus was slightly narrowed circumferentially. There was no evidence of any acute or active bleeding. At the distal left mainstem bronchus, there was obvious mucosal irregularities and the area was quite friable with superficial ulceration and bleed noted with gentle trauma that was induced by the bronchoscope. I suspect this was the origin of bleeding. This can be an area of inflammation probably radiation-induced. Alternatively, this could be an area of residual malignancy/ cancer. Based on this, 2 endobronchial biopsies of the area was obtained. No bleeding was encountered and the patient did very well. Any residual blood and secretions were suctioned out from the airway and bronchoscope was removed and the patient was transferred to recovery in stable condition. We'll be awaiting results of the endobronchial biopsies and we'll be watching for any further bleeding on this patient. Avoid antiplatelet agents for a week. Avoid any anticoagulation for a week.
[2017-10-19] MEDS: ALLOPURINOL 300 MG TAB PO SCH (14:10)
[2017-10-19] MEDS: LORATADINE 10 MG TAB PO SCH (14:10)
[2017-10-19 15:07] LABS: Anisocytosis Slight; Basophils % (A) 0 %; Eosinophils # (A) 0.1 k/uL (0-0.7); Eosinophils % (A) 1 %; HGB 8.5 gm/dL (13.0-17.5); Hypochromasia Moderate; Lymphocytes # (A) 0.3 k/uL (1.0-4.8); Lymphocytes % (A) 3 %; MCH 34.9 pg (25.0-35.0); MCHC 31.5 g/dL (31.0-37.0); MCV 110.9 fL (80.0-100.0); Macrocytosis Marked; Monocytes # (A) 0.4 k/uL (0-1.0); Monocytes % (A) 4 %; Neutrophils # (A) 9.1 k/uL (1.3-7.7); Neutrophils % (A) 92 %; Platelet Count 112 k/uL (150-450); RBC 2.43 m/uL (4.30-5.90); RDW 19.3 % (11.5-15.5); WBC 9.9 k/uL (3.8-10.6)
[2017-10-19 15:47] LABS: Polychromasia Present
--- NOTE | 2017-10-19 16:17 | P.CONS ---
History of Present Illness - Reason for Consult Consult date: 10/19/17 - History of Present Illness Mister Barakat is a pleasant white male with multiple medical problems. The patient had presented in 12/04, with complains of cough with intermittent hemoptysis. He was seen by his primary care physician and was treated with courses of antibiotics and steroids for presumed bronchitis. His symptoms persisted and became more prominent. He also developed some increased shortness of breath on exertion. He therefore had a chest x-ray on 03/27/17 which showed possible mass in the left lower lobe. He therefore had a CT scan on 04/03/17 revealing 5.6 cm 56.1 cm 153.8 cm mass in the medial aspect of the left upper lobe posteriorly, invading the adjacent mediastinum as well as crossing the major fissure involving the superior segment of the left lower lobe. There was a 1.7 cm right paratracheal lymph node noted. In addition there was a 1.7 cm speculated lesion in the right upper lobe. The patient was referred to radiation oncology. He had a PET scan on 04/21/17 confirming the presence of a thick-walled cavitary mass which was now noted to be in the superior aspect of the left lower lobe, abutting the mediastinum without a distinct fat plane. The right middle lobe nodule was noted to be 2.4 1.9 cm with SUV of 16.06. The largest right paratracheal lymph node did not show any suspicious hypermetabolic uptake. There was no other areas of uptake in the mediastinum, or elsewhere. CT scan of the brain from 04/20/17 was negative. The patient was referred to pulmonary medicine, and had bronchoscopy with Dr. Kim on 04/23/17. the right side is normal. Left upper lobe and lingular segments were also patent. Left lower lobe bronchus was extrinsically compressed with endobronchial tumor obstructing about 70-80% of the lumen. Biopsies were positive for squamous cell cancer. The patient's case was discussed in the [facility] pulmonary M[facility]. It was recommended that he have a biopsy of the right upper lobe nodule to try to define the pathology there. However the nodule was felt to be too close to the mediastinum and major blood vessels, to be a good risk for a CT-guided procedure. The procedure was thus canceled. The patient was also referred here and seen for his first visit on 05/07/17. He does have a long-standing history of smoking, but quit in 2014. Other than superficial skin cancers, he has not had any other malignancy. It was decided to treat him with combined chemoRT for the left sided tumor, and assume the rt lung nodule to be a separate primary. He was started on concurrent chemoRT with SPEECH/LANGUAGE THERAPIST 16 and Carboplatin. He is s/p 4 cycles of chemo, completing those on 07/27/17. He completed RT around 07/02/17. The patient's CAT scans at that time showed a good response, and he subsequently underwent radiation to the right upper lobe lesion. The patient had restaging CT scans of the chest abdomen and pelvis on . This showed improved appearance of both the left hilar mass, left medial nodule as well as right-sided nodule. The patient states that he has been coughing more than usual over the last 3- 4 weeks. On the day of admission, he was sitting in his car, and after episode of cooperating states that he just started bringing up blood including clots. He states that he cannot be sure if this represented vomiting or coughing. He therefore came into the emergency room and was admitted for further management. He had a CTA of the chest on which appeared to show possible progression, with new enlarged adenopathy in the pretracheal an AP window regions. The left hilar mass appeared to have had some increase in size with greater extent of the cavitary area. Since admission, the patient has not brought up any more blood. He underwent a bronchoscopy, revealing evidence of blood in the left mainstem bronchus. In the distal mainstem bronchus there was a friable area that was felt to be the likely side effects bleeding. Biopsies were done. Consult was placed for further evaluation and recommendations Review of Systems Constitutional: Reports fatigue Eyes: denies blurred vision, denies pain Ears: deny: decreased hearing, ear discharge, earache, tinnitus Ears, nose, mouth and throat: Denies headache, Denies sore throat Cardiovascular: Reports dyspnea on exertion Respiratory: Reports cough with sputum, Reports hemoptysis Gastrointestinal: Reports melena (Questionable. Patient gives a history of one episode of dark stools today) Genitourinary: Reports as per HPI Musculoskeletal: Denies myalgias Integumentary: Denies pruritus, Denies rash Neurological: Reports weakness, Denies numbness Psychiatric: Denies anxiety, Denies depression Endocrine: Denies fatigue, Denies weight change Hematologic/Lymphatic: Reports as per HPI Allergic/Immunologic: Reports as per HPI Past Medical History Past Medical History: CVA/TIA, Diabetes Mellitus, GERD/Reflux, Hyperlipidemia, Osteoarthritis (OA), Sleep Apnea/CPAP/BIPAP Additional Past Medical History / Comment(s): COPD, small cell lung cancer, coronary artery disease, hypertension, hyperlipidemia, obstructive sleep apnea nontolerant to CPAP therapy, diabetes mellitus, previous history of CVA without any residual deficits, hemorrhoids, constipation, chronic ALLERGIC rhinitis, obesity, congestion heart failure Last Myocardial Infarction Date:: unknown History of Any Multi-Drug Resistant Organisms: None Reported Past Surgical History: AICD, Cholecystectomy, Heart Catheterization, Heart Catheterization With Stent, Hernia Repair, Orthopedic Surgery Additional Past Surgical History / Comment(s): Bronchoscopy, on medical and left inguinal hernia repair, right hip arthroscopy, pacemaker/AICD placement, cardiac catheter patient with insertion of coronary stent, cholecystectomy Past Anesthesia/Blood Transfusion Reactions: No Reported Reaction Date of Last Stent Placement:: 09-23-2009 Type of Cardiac Device: AICD Device Placement Date:: 01-17-2010 Past Psychological History: Depression Additional Psychological History / Comment(s): health reasons Smoking Status: Former smoker Past Alcohol Use History: Occasional Additional Past Alcohol Use History / Comment(s): QUIT SMOKING APPROX 2003. SMOKED SINCE AGE 19 Past Drug Use History: None Reported - Past Family History Mother Family Medical History: Cancer Brother(s) Family Medical History: Cancer Additional Family Medical History / Comment(s): X 4 BROTHERS Medications and Allergies Home Medications Medication Instructions Recorded Confirmed Type Allopurinol [Zyloprim] 300 mg PO DAILY 10/02/14 10/17/17 History Aspirin EC [Ecotrin] 325 mg PO DAILY 10/02/14 10/17/17 History Cholecalciferol [Vitamin D3] 2,000 unit PO HS 10/02/14 10/17/17 History Glucosam/Cristian-Msm1/C/Dorian/Bosw 1 tab PO DAILY 10/02/14 10/17/17 History [Glucosamine-Chondroitin Tablet] Magnesium Oxide [Mag-Ox] 400 mg PO TID 10/02/14 10/18/17 History Metoprolol Succinate [Toprol XL] 100 mg PO QAM 10/02/14 10/17/17 History Omeprazole [PriLOSEC] 20 mg PO AC-BID 10/02/14 10/17/17 History Saxagliptin HCl [Onglyza] 5 mg PO DAILY 10/02/14 10/17/17 History Simvastatin [Zocor] 20 mg PO HS 10/02/14 10/17/17 History Vitamin B Complex 1 cap PO DAILY 10/02/14 10/17/17 History hydrALAZINE HCL [Apresoline] 50 mg PO TID 10/02/14 10/17/17 History Cetirizine HCl [Zyrtec] 10 mg PO DAILY 10/17/17 10/17/17 History Ibuprofen [Motrin] 600 mg PO Q8HR PRN 10/17/17 10/17/17 History Allergies Allergy/AdvReac Type Severity Reaction Status Date / Time Penicillins Allergy Anaphylaxis Verified 10/17/17 20:23 Physical Exam Vitals: Vital Signs Temp Pulse Pulse Pulse Pulse Pulse Pulse 10/19/17 11:35 78 10/19/17 11:26 10/19/17 11:24 73 10/19/17 11:14 106 H 103 H 105 H 110 H 10/19/17 10:16 106 H 103 H 105 H 110 H 10/19/17 09:48 103 H 10/19/17 08:46 101 H 10/19/17 08:39 109 H 10/19/17 05:00 99 F 87 10/19/17 00:10 10/18/17 21:30 98.8 F 92 10/18/17 19:34 90 10/18/17 19:16 90 10/18/17 16:00 118 H 10/18/17 14:46 10/18/17 14:07 110 H 10/18/17 13:45 Pulse Resp BP Pulse Ox Pulse Ox Pulse Ox Pulse Ox 10/19/17 11:35 16 10/19/17 11:26 93 L 10/19/17 11:24 16 10/19/17 11:14 118 H 96 95 92 L 10/19/17 10:16 118 H 96 95 92 L 10/19/17 09:48 20 110/57 95 10/19/17 08:46 18 10/19/17 08:39 18 86 L 10/19/17 05:00 17 113/55 95 10/19/17 00:10 17 10/18/17 21:30 17 122/62 97 10/18/17 19:34 10/18/17 19:16 10/18/17 16:00 109/60 10/18/17 14:46 94 L 10/18/17 14:07 94 L 10/18/17 13:45 18 Pulse Ox Pulse Ox 10/19/17 11:35 10/19/17 11:26 10/19/17 11:24 10/19/17 11:14 90 L 84 L 10/19/17 10:16 90 L 84 L 10/19/17 09:48 10/19/17 08:46 10/19/17 08:39 10/19/17 05:00 10/19/17 00:10 10/18/17 21:30 10/18/17 19:34 10/18/17 19:16 10/18/17 16:00 10/18/17 14:46 10/18/17 14:07 10/18/17 13:45 Intake and Output 10/18/17 10/19/17 10/19/17 22:59 06:59 14:59 Intake Total 360 200 Balance 360 200 Intake: IV 200 Oral 360 Other: Voiding Method Toilet Toilet # Voids 1 2 2 # Bowel Movements 1 Weight 92.533 kg - Constitutional General appearance: no acute distress - EENT Eyes: EOMI, PERRLA ENT: hearing grossly normal, normal oropharynx - Neck Neck: no lymphadenopathy Thyroid: bilateral: normal size - Respiratory Respiratory: bilateral: CTA - Cardiovascular Rhythm: regular Heart sounds: normal: S1, S2 - Gastrointestinal General gastrointestinal: soft - Integumentary Integumentary: normal - Neurologic Neurologic: CNII-XII intact - Musculoskeletal Musculoskeletal: generalized weakness, strength equal bilaterally - Psychiatric Psychiatric: A&O x's 3, appropriate affect Results CBC & Chem 7: 10/19/17 14:07 10/17/17 20:00 Labs: Abnormal Lab Results - Last 24 Hours (Table) 10/18/17 10/18/17 10/18/17 Range/Units 15:58 16:53 20:10 RBC 2.42 L (4.30-5.90) m/uL Hgb 8.4 L (13.0-17.5) gm/dL Hct 25.4 L (39.0-53.0) % MCV 105.1 H (80.0-100.0) fL RDW 19.8 H (11.5-15.5) % Plt Count 97 L (150-450) k/uL Neutrophils # 8.4 H (1.3-7.7) k/uL Lymphocytes # 0.4 L (1.0-4.8) k/uL POC Glucose (mg/dL) 124 H 117 H (75-99) mg/dL 10/18/17 10/19/17 10/19/17 Range/Units 21:50 03:51 06:56 RBC 2.44 L 2.33 L (4.30-5.90) m/uL Hgb 8.3 L 8.0 L (13.0-17.5) gm/dL Hct 26.1 L 25.5 L (39.0-53.0) % MCV 107.1 H 109.1 H (80.0-100.0) fL RDW 19.9 H 19.7 H (11.5-15.5) % Plt Count 105 L 96 L (150-450) k/uL Neutrophils # 7.8 H (1.3-7.7) k/uL Lymphocytes # 0.5 L 0.5 L (1.0-4.8) k/uL POC Glucose (mg/dL) 115 H (75-99) mg/dL 10/19/17 Range/Units 11:34 RBC (4.30-5.90) m/uL Hgb (13.0-17.5) gm/dL Hct (39.0-53.0) % MCV (80.0-100.0) fL RDW (11.5-15.5) % Plt Count (150-450) k/uL Neutrophils # (1.3-7.7) k/uL Lymphocytes # (1.0-4.8) k/uL POC Glucose (mg/dL) 129 H (75-99) mg/dL CT scan - abdomen: report reviewed CT scan - chest: report reviewed CT scan - pelvis: report reviewed Assessment and Plan (1) Hemoptysis Narrative/Plan: The patient is presenting with acute onset of hemoptysis which is new for him. Initially it was not clear if this bleeding was from a GI origin or the lung. However the findings on the bronchoscopy indicate most likely pulmonary origin. Currently the bleeding has stopped and hemoglobin is stable in the 8 range. Pulmonary medicine is following. From the hematology standpoint, continue to monitor with transfusion as needed to keep hemoglobin above 7. Current Visit: Yes Status: Acute Code(s): R04.2 - HEMOPTYSIS SNOMED Code(s ): 82240759 (2) Squamous cell lung cancer Narrative/Plan: Diagnostic and therapeutic circumstances as described. The patient has completed initial planned treatment and appeared to be in at least a partial remission radiologically. CT scans from 09/28/17 had shown no evidence of progression. However findings this admission, as well as the presentation of hemoptysis, are concerning for recurrence of malignancy. Computed tomography scan also showed increasing opacity in the left lower lobe, with concerns being lymphangitic meningitis versus benign infiltrative changes or fibrosis The above impression was discussed in detail with him and his family. At this time we will await the results of the biopsy. If the biopsy is positive, then that would indicate recurrent malignancy. In that case the patient will need to be restarted on systemic therapy. He may not be a candidate for further radiation, based on his previous treatment Current Visit: Yes Status: Acute Code(s): C34.90 - MALIGNANT NEOPLASM OF UNSP PART OF UNSP BRONCHUS OR LUNG SNOMED Code(s): 417730570
[2017-10-19 17:27] LABS: Glucose,Whole Blood 115 mg/dL (75-99)
[2017-10-19 20:39] LABS: Glucose,Whole Blood 112 mg/dL (75-99)
[2017-10-19] MEDS: CHOLECALCIFEROL 1,000 UNIT TAB PO SCH (21:10)
[2017-10-19] MEDS: ATORVASTATIN 10 MG TAB PO SCH (21:11)
--- NOTE | 2017-10-19 21:46 | PN ---
PROGRESS NOTE DATE OF SERVICE: 10/19/2017 PRESENTING COMPLAINT: Hemoptysis. HISTORY OF PRESENTING COMPLAINT: Patient admitted with severe hemoptysis. Hematemesis could not be ruled out. The patient did undergo bronchoscopy today and some endobronchial biopsies were taken. He is also scheduled for EGD tomorrow to rule out a GI source. The patient does feel a bit tired, did have a dark stool today. Son is present in the room. REVIEW OF SYSTEMS: Done for constitutional, cardiovascular, GI, pulmonary; relevant findings as above. CURRENT MEDICATIONS: Reviewed. EXAMINATION: Temperature 98.3, pulse 96, respirations 18, blood pressure 117/61 pulse ox 98% on 3L. GENERAL APPEARANCE: Sitting at the edge of the bed, tired-appearing. EYES: Pupils equal. Conjunctivae pale. HEENT: External nose and ears normal. Oral cavity normal. NECK: JVD not raised. Mass not palpable. RESPIRATORY: Effort normal. LUNGS: Decreased breath sounds. CARDIOVASCULAR: First and second sounds normal. No edema. ABDOMEN: Soft, nontender. Liver and spleen not palpable. PSYCHIATRY: Alert and oriented x3. Mood and affect normal. INVESTIGATIONS: White count 9.9, hemoglobin 8.5. ASSESSMENT: 1. Massive hemoptysis, could not rule out hematemesis, status post bronchoscopy, possibly bleeding area as a endobronchial tumor. Gastrointestinal source needs to be ruled out, pending esophagogastroduodenoscopy. 2. Squamous cell carcinoma of the lung, status post chemo and radiation treatment. 3. Diabetes mellitus type 2 on oral hypoglycemic. 4. Gastroesophageal reflux disease. 5. Hyperlipidemia. 6. Obstructive sleep apnea, uses a CPAP machine. 7. Chronic obstructive pulmonary disease in an ex-smoker. 8. Coronary artery disease. Prior history of stent. 9. Obesity; BMI of 32.0. 10.Bicytopenia, could be from chemotherapy. 11.Acute blood loss anemia from hemoptysis. PLAN: Continue current medication and treatment plan. Await EGD tomorrow. Will await the biopsy results and further plan will be to determine from there. Care was discussed the patient's son at the bedside. MMODL / IJN: [id number] /
[2017-10-20 07:24] LABS: Glucose,Whole Blood 129 mg/dL (75-99)
[2017-10-20] MEDS: INSULIN ASPART 100 UNIT/ML 1 ML 10 ML VIAL SQ SCH ×3 (07:35→17:39)
[2017-10-20] MEDS: IPRATROPIUM-ALBUTEROL 3 ML NEB IH SCH ×3 (07:36→16:50)
[2017-10-20 07:45] VITALS: BP 105/60; RESP 20; TEMP 98
[2017-10-20] MEDS ORDERED: LACTATED RINGERS 1,000 ML IV ONE ×2 (07:58)
[2017-10-20] MEDS ORDERED: PROPOFOL 10 MG/ML 20 ML VIAL IV ONE (08:00)
[2017-10-20] MEDS ORDERED: LIDOCAINE 1% INJ 10MG/ML (20 ML MDV) ONE (08:00)
--- NOTE | 2017-10-20 08:13 | P.PCN ---
Date of Procedure: 10/20/17 Procedure(s) Performed: BRIEF HISTORY: Patient is a 77-year-old, pleasant, male, admitted to the hospital with hemoptysis and black tarry stools. He has history of lung cancer diagnosed in April 2070 and is status post chemoradiation therapy last month. He underwent a bronchoscopy yesterday by Dr. Kim. Because of the ongoing Dr. Lopez scheduled for an upper endoscopy to rule out upper GI source of bleeding. PROCEDURE PERFORMED: Esophagogastroduodenoscopy. PREOPERATIVE DIAGNOSIS: Black tarry stools of 2 days' duration. IV sedation per anesthesia. PROCEDURE: After informed consent was obtained, the patient was brought into the endoscopy unit. IV sedation was administered by Anesthesia under continuous monitoring. Initially the Olympus GIF-140 video endoscope was inserted into the mouth. Esophagus intubated without any difficulty. It was gradually advanced into the stomach and duodenum and carefully examined. The bulb and the second part of the duodenum appeared normal. The scope at this time was withdrawn to the stomach, adequately insufflated with air, and upon careful examination, mucosa of the antrum, body, cardia and the fundus appeared normal. The scope was then withdrawn into the esophagus. The GE junction was located at 39 cm from the incisors. The esophagus appeared normal. There were no erosions or ulcerations seen and the patient tolerated the procedure well. IMPRESSION: 1. No evidence of upper GI bleed. 2. Normal-appearing esophagus, stomach and duodenum. RECOMMENDATIONS: The findings of this examination were discussed with the patient. Diet will be advanced as tolerated..
[2017-10-20] MEDS: hydrALAZINE HCL 50 MG TAB PO SCH ×2 (08:58→17:02)
[2017-10-20] MEDS: PANTOPRAZOLE 40 MG TABLET PO SCH (08:58)
[2017-10-20] MEDS: METOPROLOL SUCCINATE (ER) 100 MG TAB.ER.24H PO SCH (08:59)
[2017-10-20] MEDS: MAGNESIUM OXIDE 400 MG TAB PO SCH ×2 (08:59→17:02)
[2017-10-20] MEDS: LORATADINE 10 MG TAB PO SCH (08:59)
[2017-10-20] MEDS: ALLOPURINOL 300 MG TAB PO SCH (08:59)
[2017-10-20 11:01] LABS: Glucose,Whole Blood 172 mg/dL (75-99)
--- NOTE | 2017-10-20 12:20 | P.PN ---
Subjective Progress Note Date: 10/20/17 Principal diagnosis: Hemoptysis 77-year-old male patient with known history of small cell lung cancer who was treated with a concurrent chemoradiation therapy, presents emergency department yesterday because of an acute onset massive hemoptysis. The patient reports cough and approximately 2 50 mL of bright red blood with occasional blood clots. He was very much concerned and he presented himself to the burst department. He denies having any significant shortness of breath. No chest pain or pleurisy. No hematemesis. No melanotic stools. No epistaxis. No fever. No chills. His hemoglobin has stayed at 8.5 and stable. Correlation profile is also within normal limits. Note that the patient has history of COPD, coronary artery disease, congestion heart failure, he has an AICD in place in addition to diabetes and hyperlipidemia. Furthermore, the patient presented back in March 2017 with a cavitating mass in the left upper lobe and he was having episodes of hemoptysis. The CAT scan was done and [facility] and showed a 6 cm cavitating mass in the left upper lobe medially and posteriorly located. There was another 1.7 cm right paratracheal lymph node and others particularly the lesion in the right upper lobe. At that point, a bronchoscopy was done and we confirmed the diagnosis of a small cell lung cancer. The patient has received systemic chemoradiation therapy since then and the most recent CAT scan of the chest abdomen pelvis that was done on 09/28/2017 showed left-sided pneumatocele with focal nodular and this has significantly increased in size compared to the previous CAT scan findings. There was also decrease in the size of a nodule on the right indicating positive response. No evidence of any mediastinal lymphadenopathy. No evidence of any osseous metastases. No evidence of any visceral metastasis on the CAT scan of the abdomen and pelvis. Note that the bronchoscopy that was done on 04/24/2017 showed endobronchial tumor obstructing the left lower lobe bronchitis and there was evidence of extrinsic compression along with endobronchial involvement. There was significant compromise of the left lower lobe bronchus and there was reduction in size of the lower lumbar a 80-90%. On 10/19/2017 evaluation, the patient is not having any hemoptysis. He was free of any cough and blood for the past 12 hours. He is currently nothing by mouth in preparation for bronchoscopy. CAT scan of the chest was also done yesterday and it showed multiple densities in the left lung, nodular, may potentially suggests possible metastatic disease versus fibrosis. There is a lung mass in the medial left lung adjacent to the aorta with cavitation. At the level of the aortic arch, this was measuring 5.5 x 4.7 cm in size. There are cavity is change in appearance compared to the previous CAT scan that was done 3 weeks ago and is currently measuring 3.4 x 4.3 cm in size compared to 2.2 x 5.0 cm in size. There is also evidence of an enlarged lymph node in the pretracheal area additional large lymphadenopathy in the AP window measuring 1.1 cm and left hilar adenopathy is also suspected. Was no evidence of any pulmonary embolism. Hemodynamically stable. He did report one bout of black stools today. The patient is seen again today 10/20/2017 in follow-up in the oncology unit. He is currently resting quite comfortably in bed. He is awake and alert in no acute distress. He denied further hemoptysis. He did undergo bronchoscopy and was found to have a distal left main stem lesion that was oozing blood and was suspected as the source of the hemoptysis. Biopsies were taken. He does so undergone EGD today that revealed no evidence of upper GI bleeding. There is a normal-appearing esophagus, stomach and duodenum. He has no other complaints this morning. He is anxious to go home. Objective - Vital Signs Vital signs: Vital Signs Temp 98 F 10/20/17 07:40 Pulse 88 10/20/17 11:23 Resp 20 10/20/17 07:40 BP 105/60 10/20/17 07:40 Pulse Ox 96 10/20/17 07:40 Intake & Output 10/19/17 10/20/17 10/20/17 18:59 06:59 18:59 Intake Total 200 590 200 Balance 200 590 200 Intake: IV 200 200 Oral 590 Other: Voiding Method Toilet Toilet Toilet # Voids 2 1 # Bowel Movements 1 - Exam General Appearance no diaphoresis, no respiratory distress, speech not interrupted by breaths, no dyspnea, no pallor, not cachectic, well nourished, appears well, morbid obesity HEENT no pursed lip breathing, no jugular venous distention, no mucous membrane cyanosis, no perioral cyanosis, mallampati classification: class 1, Mallampati Classification: Class 4 Chest no barrel chest, no retractions, no sternocleidomastoid muscle contractions, no supraclavicular retractions, no intercostal retractions, no prolonged expiratory wheezing, no decreased air movement, no rhonchi, no hyperinflation, decreased air movement Heart no right ventricular heave, no distant heart sounds, no s3 gallop GI bowel sounds: hyperactive (borborygmi), bowel sounds: diminished or absent Extremities no cyanosis, no clubbing, no edema Neurologic no decreased mental status, no somnolence, no confusion Skin General Appearance normal, (normal) normal except as noted - Labs CBC & Chem 7: 10/19/17 14:07 10/17/17 20:00 Labs: Abnormal Lab Results - Last 24 Hours (Table) 10/19/17 10/19/17 10/19/17 Range/Units 14:07 17:25 20:37 RBC 2.43 L (4.30-5.90) m/uL Hgb 8.5 L (13.0-17.5) gm/dL Hct 27.0 L (39.0-53.0) % MCV 110.9 H (80.0-100.0) fL RDW 19.3 H (11.5-15.5) % Plt Count 112 L (150-450) k/uL Neutrophils # 9.1 H (1.3-7.7) k/uL Lymphocytes # 0.3 L (1.0-4.8) k/uL POC Glucose (mg/dL) 115 H 112 H (75-99) mg/dL 10/20/17 10/20/17 Range/Units 07:09 10:59 RBC (4.30-5.90) m/uL Hgb (13.0-17.5) gm/dL Hct (39.0-53.0) % MCV (80.0-100.0) fL RDW (11.5-15.5) % Plt Count (150-450) k/uL Neutrophils # (1.3-7.7) k/uL Lymphocytes # (1.0-4.8) k/uL POC Glucose (mg/dL) 129 H 172 H (75-99) mg/dL Assessment and Plan Assessment: assessment 1 massive hemoptysis, source most likely being the left lower lobe where there was endobronchial tumor extending to the left lower lobe bronchus causing significant airway compromise. Nevertheless, the patient was treated with a combination of chemoradiation therapy in the most recent CAT scan of the chest from 09/28/2017 showed improvement in the size of the left lower lobe mass and there is an existing pneumatocele for now with some mural nodule within the pneumatocele that looks suspicious. Bronchoscopy performed yesterday revealed a distal left main bronchus lesion that was oozing blood. Suspect the source of the hemoptysis. Biopsies were performed. EGD performed today did not reveal any upper GI bleeding. Normal esophagus, stomach and duodenum. 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 Most recent CAT scan of the chest from 09/29/2079 was noted showing decrease in size of the left side lung lesion within the pneumatocele existing and a posterior segment of the left lower lobe and decrease in the size of the right midlung pulmonary nodule. 3 obstructive sleep apnea maintained on CPAP at a pressure of 10 cm of water 4 obesity 5 coronary artery disease 6 congestion heart failure 7 history of AICD placement 8 diabetes mellitus 9 hyperlipidemia plan The patient was seen and evaluated by Dr. Kim. No further hemoptysis. Bronchoscopy revealed a distal left main bronchus lesion that was seen and most likely the source of the hemoptysis. Biopsies were taken. EGD revealed no upper GI bleeding. He is stable from the pulmonary standpoint and could be discharged home. He will be discharged home on oxygen. He and his son are encouraged to obtain a pulse oximeter for readings. He'll follow-up in our office in 1-2 weeks' time. He is however encouraged to call sooner with any recurrence hemoptysis or other questions or concerns. I, the cosigning physician, performed a history & physical examination of the patient. Lungs sounds with few scattered rhonchi. Maintaining good O2 saturations in the 90s on 3 L/m per nasal cannula. I discussed the assessment and plan of care with my nurse practitioner, Laura Dickson. I attest to the above note as dictated by her.
[2017-10-20 16:55] VITALS: PULSE 106
[2017-10-20 17:38] LABS: Glucose,Whole Blood 124 mg/dL (75-99)
--- NOTE | 2017-10-21 17:34 | DS ---
DISCHARGE SUMMARY DATE OF ADMISSION: 10/18/2017. DATE OF OF DISCHARGE: October 20, 2017. FINAL DIAGNOSES: 1. Massive hemoptysis, likely from endobronchial tumor recurrence in the lung. 2. 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 3. Diabetes mellitus type 2 on oral hypoglycemic. 4. Gastroesophageal reflux disease. 5. Hyperlipidemia. 6. Obstructive sleep apnea uses CPAP machine. 7. Chronic obstructive pulmonary disease in an ex-smoker. 8. Coronary artery disease, prior history of stent. 9. Obesity; BMI 32. 10.Bicytopenia, could be from chemotherapy. 11.Acute blood loss anemia from hemoptysis. 12.Chronic hypoxic respiratory failure from underlying chronic obstructive pulmonary disease. CONSULTATION: Dr. Kim from Pulmonary, Dr. Adames from Gastroenterology, Dr. Gay from Oncology. HOSPITAL COURSE: This very pleasant gentleman who is undergoing treatment for lung cancer by Dr. Gay and Dr. Magana from Radiation Oncology, presented with massive hemoptysis. EGD showed endobronchial tumor. Biopsy which is pending. Also, there is a concern if there was any hematemesis. Hence patient did have a EEG that was unremarkable. The patient is doing better by the time of discharge. Hemoglobin stable at 8.5. On examination abdomen soft, nontender. Lungs decreased breath sounds. Care was discussed with the patient's daughter at the bedside. Questions were answered. Discharge planning more than 35 minutes. DISCHARGE MEDICATIONS: 1. Allopurinol 300 mg a day. 2. Vitamin D3 2000 units p.o. q.h.s. 3. Glucosamine chondroitin 1 tab p.o. daily. 4. Magnesium oxide 400 mg p.o. t.i.d. 5. Toprol-XL 100 mg p.o. daily. 6. Prilosec 20 mg p.o. b.i.d. 7. Onglyza 5 mg p.o. daily. 8. Zocor 20 mg q.h.s. 9. Vitamin B complex 1 capsule p.o. daily. 10.Hydralazine 50 mg p.o. t.i.d. 11.Zyrtec 10 mg p.o. daily. 12.DuoNeb t.i.d. FOLLOW UP: With Dr. Gay in 1 week, Dr. Hernandez in 3 days, Dr. Kim in 1 week. Home oxygen to be given. Copy Dr. Hernandez. MMLILIAL / IJN: [id number] /
== END 2017-10-20 18:35 | disposition home or self-care (01) | DRG 180 ==
LOC: EC 19:55 → 5ONC 10-18 01:15
PROVIDERS: ADMIT Hospitalist; ATTEND Hospitalist
PROC: 0BB78ZX Excision of Left Main Bronchus, Via Natural or Artificial Opening Endoscopic, Diagnostic (ICD-10-PCS; principal; 2017-10-19 07:30)
PROC: 0BJ08ZZ Inspection of Tracheobronchial Tree, Via Natural or Artificial Opening Endoscopic (ICD-10-PCS; principal; 2017-10-19 07:30)
PROC: 0DJ08ZZ Inspection of Upper Intestinal Tract, Via Natural or Artificial Opening Endoscopic (ICD-10-PCS; 2017-10-20)
DX: C34.90 Malignant neoplasm of unspecified part of unspecified bronchus or lung (principal); D61.810 Antineoplastic chemotherapy induced pancytopenia; D62 Acute posthemorrhagic anemia; J96.11 Chronic respiratory failure with hypoxia; E11.9 Type 2 diabetes mellitus without complications; E78.5 Hyperlipidemia, unspecified; G47.33 Obstructive sleep apnea (adult) (pediatric); I11.0 Hypertensive heart disease with heart failure; I25.10 Atherosclerotic heart disease of native coronary artery without angina pectoris; I50.9 Heart failure, unspecified; J44.9 Chronic obstructive pulmonary disease, unspecified; K21.9 Gastro-esophageal reflux disease without esophagitis; Y84.2 Radiological procedure and radiotherapy as the cause of abnormal reaction of the patient, or of later complication, without mention of misadventure at the time of the procedure; Z68.32 Body mass index [BMI] 32.0-32.9, adult; Z79.82 Long term (current) use of aspirin; Z79.899 Other long term (current) drug therapy; Z86.73 Personal history of transient ischemic attack (TIA), and cerebral infarction without residual deficits; Z87.891 Personal history of nicotine dependence; Z92.21 Personal history of antineoplastic chemotherapy; Z92.3 Personal history of irradiation; Z95.5 Presence of coronary angioplasty implant and graft; Z95.810 Presence of automatic (implantable) cardiac defibrillator; Z96.641 Presence of right artificial hip joint; E66.01 Morbid (severe) obesity due to excess calories; T45.1X5A Adverse effect of antineoplastic and immunosuppressive drugs, initial encounter; Z88.0 Allergy status to penicillin
CPT/HCPCS: 31625; 36415; 43235; 71046; 71275; 80053; 82272; 82550; 82553; 83735; 83880; 84484; 85025; 85610; 85730; 86850; 86900; 86901; 88305; 93005; 94640; 94760; 99285